=== PATIENT | male | born 1945 | race Caucasian/White ===

== ENCOUNTER → 2016-05-03 | Outpatient (CLI) | payer OTHER ==
[~2016-05-03] MED LIST: ASPI81TA28 PO; ATOR-22 PO; CHOLTAB3 PO; CINN500T PO; CLOTCRE33 TOP; GLIP-197 PO; LOSA1TAB PO; METF-384 PO; MULT-845 PO; NAPR1TAB9 PO; OMEP20CA59 PO; PRVHFAIN PO
[2016-05-03 12:49] LABS: BLOOD UREA NITROGEN 13 mg/dl (7-18); CREATININE 0.95 mg/dl (0.60-1.40); GLUCOSE 152 mg/dl (70-99)
[2016-05-03 12:50] LABS: ALT/SGPT 39 U/L (12-78); BUN/CREATININE RATIO 13.9 (10-20); CALCIUM 8.7 mg/dl (8.5-10.1); CARBON DIOXIDE 27 mmol/L (21-32); CHLORIDE 103 mmol/L (98-107); CHOLESTEROL 162 mg/dl (0-200); POTASSIUM 4.4 mmol/L (3.5-5.1); SODIUM 140 mmol/L (136-145); TRIGLYCERIDES 114 mg/dl (0-150); VERY LOW DENSITY LIPOPROT CALC 23 mg/dl
[2016-05-03 13:00] LABS: ALB/GLOB RATIO 1.1 (0.9-2); ALKALINE PHOSPHATASE 92 U/L (45-117); AST/SGOT 24 U/L (15-37); CHOLESTEROL/HDL RATIO 3.4; HDL CHOLESTEROL 47 mg/dl; LDL CHOLESTEROL CALCULATED 92 mg/dl; THYROID STIMULATING HORMONE 0.768 uIu/ml (0.300-4.500)
[2016-05-03 13:21] LABS: ESTIMATED AVERAGE GLUCOSE 157 mg/dl; HA1C FLAG Normal (Normal)
== END | disposition home or self-care (01) ==
LOC: C.LABBFT 07:56
PROVIDERS: ATTEND Internal Medicine
DX: E11.9 Type 2 diabetes mellitus without complications (principal)

== ENCOUNTER → 2016-10-22 | Outpatient (CLI) | payer OTHER ==
[2016-10-22 12:29] LABS: HEMATOCRIT 47.1 % (42-52); MEAN CELL VOLUME 94.8 fL (80-100); MEAN CORPUSCULAR HEMOGLOBIN 30.8 pg (25-34); MEAN CORPUSCULAR HGB CONC 32.5 g/dl (32-36); PLATELET COUNT 294 K/uL (130-400); RED BLOOD COUNT 4.97 M/uL (4.7-6.1); WHITE BLOOD COUNT 8.64 K/uL (4.8-10.8)
[2016-10-22 12:38] LABS: ALT/SGPT 38 U/L (12-78); AST/SGOT 20 U/L (15-37); BLOOD UREA NITROGEN 13 mg/dl (7-18); BUN/CREATININE RATIO 15.5 (10-20); CALCIUM 8.6 mg/dl (8.5-10.1); CARBON DIOXIDE 30 mmol/L (21-32); CHLORIDE 104 mmol/L (98-107); CHOLESTEROL 136 mg/dl (0-200); CREATININE 0.87 mg/dl (0.60-1.40); GLUCOSE 171 mg/dl (70-99); POTASSIUM 4.5 mmol/L (3.5-5.1); SODIUM 139 mmol/L (136-145)
[2016-10-22 12:45] LABS: ESTIMATED AVERAGE GLUCOSE 163 mg/dl; HA1C FLAG Normal (Normal)
[2016-10-22 12:49] LABS: ALKALINE PHOSPHATASE 144 U/L (45-117); CHOLESTEROL/HDL RATIO 3.7; FREE PSA 0.12 ng/ml; HDL CHOLESTEROL 37 mg/dl; LDL CHOLESTEROL CALCULATED 69 mg/dl; PROSTATE SPECIFIC ANTIGEN 0.526 ng/ml (0.000-4.000); THYROID STIMULATING HORMONE 0.651 uIu/ml (0.300-4.500); TRIGLYCERIDES 152 mg/dl (0-150); VERY LOW DENSITY LIPOPROT CALC 30 mg/dl
[2016-10-22 13:10] LABS: RATIO 15.8 mcg/mg (0-30.0)
== END | disposition home or self-care (01) ==
LOC: C.LABBFT 07:46
PROVIDERS: ATTEND Internal Medicine
DX: N40.0 Benign prostatic hyperplasia without lower urinary tract symptoms (principal); E11.9 Type 2 diabetes mellitus without complications

== ENCOUNTER → 2017-06-05 | Outpatient (CLI) | payer OTHER ==
[2017-06-05 12:17] LABS: HEMOGLOBIN A1C 7.6 % (4.5-5.6)
[2017-06-05 12:35] LABS: ALBUMIN 3.8 gm/dl (3.4-5.0); ALKALINE PHOSPHATASE 106 U/L (45-117); ALT/SGPT 42 U/L (12-78); AST/SGOT 23 U/L (15-37); BLOOD UREA NITROGEN 14 mg/dl (7-18); CALCIUM 8.5 mg/dl (8.5-10.1); CARBON DIOXIDE 31 mmol/L (21-32); CHOLESTEROL 155 mg/dl (0-200); GLUCOSE 172 mg/dl (70-99); POTASSIUM 4.3 mmol/L (3.5-5.1); SODIUM 138 mmol/L (136-145)
[2017-06-05 12:44] LABS: LDL CHOLESTEROL CALCULATED 93 mg/dl; TOTAL PROTEIN 7.2 gm/dl (6.4-8.2)
== END | disposition home or self-care (01) ==
LOC: C.LABBFT 07:34
PROVIDERS: ATTEND Internal Medicine
DX: E78.00 Pure hypercholesterolemia, unspecified (principal); E11.29 Type 2 diabetes mellitus with other diabetic kidney complication

== ENCOUNTER → 2017-10-29 | Outpatient (CLI) | payer OTHER ==
[2017-10-29 17:41] LABS: BASO % 0.3 %; BASO ABS # 0.03 K/uL (0-0.2); EOS % 1.3 %; EOS ABS # 0.13 K/uL (0-0.5); HEMOGLOBIN 14.6 g/dL (14.0-18.0); IG# 0.02 K/uL (0.00-0.02); LYMPH % 20.1 %; LYMPH ABS # 1.94 K/uL (1.2-3.4); MEAN CELL VOLUME 92.8 fL (80-100); MEAN CORPUSCULAR HEMOGLOBIN 30.8 pg (25-34); MEAN CORPUSCULAR HGB CONC 33.2 g/dl (32-36); MEAN PLATELET VOLUME 9.5 fL (7.4-10.4); MONO % 8.7 %; MONO ABS # 0.84 K/uL (0.11-0.59); NEUT % 69.4 %; NEUT ABS # 6.68 K/uL (1.4-6.5); PLATELET COUNT 358 K/uL (130-400); RED CELL DISTRIBUTION WIDTH CV 13.7 % (11.5-14.5); RED CELL DISTRIBUTION WIDTH SD 46.7 fL (36.4-46.3); WHITE BLOOD COUNT 9.64 K/uL (4.8-10.8)
[2017-10-29 18:07] LABS: ALBUMIN 3.2 gm/dl (3.4-5.0); ALKALINE PHOSPHATASE 129 U/L (45-117); ALT/SGPT 32 U/L (12-78); AST/SGOT 24 U/L (15-37); BLOOD UREA NITROGEN 14 mg/dl (7-18); CARBON DIOXIDE 26 mmol/L (21-32); CREATININE 0.96 mg/dl (0.60-1.40); GLUCOSE 149 mg/dl (70-99); POTASSIUM 3.7 mmol/L (3.5-5.1); SODIUM 135 mmol/L (136-145)
== END | disposition home or self-care (01) ==
LOC: C.LAB1850 16:00
PROVIDERS: ATTEND Nurse Practitioner Adult Health
DX: N52.9 Male erectile dysfunction, unspecified (principal); R61 Generalized hyperhidrosis; R53.83 Other fatigue; R10.9 Unspecified abdominal pain; R19.7 Diarrhea, unspecified

== ENCOUNTER → 2017-10-30 | Outpatient (CLI) | payer OTHER | END | disposition home or self-care (01) | LOC: C.LAB 13:42 | PROVIDERS: ATTEND Nurse Practitioner Adult Health | DX: R61 Generalized hyperhidrosis (principal) ==

== ENCOUNTER → 2017-11-03 | Outpatient (CLI) | payer OTHER ==
--- NOTE | 2017-11-03 08:46 | DIAGNOSTIC IMAGING REPORT ---
ABDOMEN COMPLETE (US) HISTORY: Pain. Nausea. R10.9 Abdominal [id number]. COMPARISON: 09/29/2014 FINDINGS: Pancreas: The pancreas demonstrates a normal echotexture. Liver: Fatty infiltration Gallbladder: Gallstones. Normal gallbladder wall. CBD: 6 mm Kidneys: No hydronephrosis. Spleen: Normal in size. Aorta: Normal in caliber. IVC: Patent. IMPRESSION: 1. Gallstones. 2. Fatty infiltration of liver. 3. Normal caliber bile ducts. The above report was generated using voice recognition software. It may contain grammatical, syntax or spelling errors. Electronically signed by: Oc Smart M.D. 11/03/2017 8:45 AM Dictated Date/Time: 11/03/2017 8:43 AM
== END | disposition home or self-care (01) ==
LOC: C.ULTR 07:30
PROVIDERS: ATTEND Nurse Practitioner Adult Health
DX: K80.20 Calculus of gallbladder without cholecystitis without obstruction (principal); K76.0 Fatty (change of) liver, not elsewhere classified

== ENCOUNTER → 2017-11-05 | Outpatient (CLI) | payer OTHER ==
[2017-11-05 11:08] LABS: BLOOD UREA NITROGEN 10 mg/dl (7-18); CARBON DIOXIDE 27 mmol/L (21-32); CREATININE 0.94 mg/dl (0.60-1.40); GLUCOSE 193 mg/dl (70-99); POTASSIUM 3.6 mmol/L (3.5-5.1); SODIUM 136 mmol/L (136-145)
== END | disposition home or self-care (01) ==
LOC: C.LAB1850 09:22
PROVIDERS: ATTEND Nurse Practitioner Adult Health
DX: R19.7 Diarrhea, unspecified (principal)

== ENCOUNTER 2021-10-28 21:51 | Inpatient (IN) ==
[2021-10-28] MEDS ORDERED: MoRPHine SULFATE 4 MG/ML 1 ML CARP\\VIAL IV PRN (22:21)
[2021-10-28] MEDS ORDERED: ONDANSETRON INJ 2 MG/ML 2 ML VIAL IV STA (22:21)
[2021-10-28] MEDS ORDERED: SODIUM CHLORIDE 0.9% 1000ML 1,000 ML IV STA (22:21)
--- NOTE | 2021-10-28 22:31 | Emergency Department Note ---
Impression & Plan Epigastric abdominal pain, Cholelithiasis, Acute pancreatitis, Vomiting ED Provider Note NAME: JULIEN HUBBARD AGE: 76 SEX: M : 1945 ARRIVES VIA: Walk-In INFORMANT: [Patient] ED PROVIDER(S): [Lamberto Ortez MD] CHIEF COMPLAINT: Abdominal pain HISTORY OF PRESENT ILLNESS: The patient is a 76-year-old male who presents with abdominal pain that began about 2 hours ago. The pain started about 1-1/2 hours after eating. The pain was epigastric and fairly severe. He did become nauseated and vomited. He had felt fine earlier in the day. There has been no cough or congestion. No shortness of breath. The patient has never had any abdominal surgeries. He has never had pain like this before. His pain is a bit better now than it was but he still has discomfort. REVIEW OF SYSTEMS: See HPI for pertinent positives and negatives. A total of ten systems were reviewed and were otherwise negative. PMHx/PSHx: See Below SOCIAL HISTORY: See Below. PHYSICAL EXAM: GENERAL: Patient is in mild distress from pain. HEENT: No acute trauma, normocephalic atraumatic, mucous membranes moist, no nasal congestion, no scleral icterus. NECK: No stridor, no adenopathy, no meningismus, trachea is midline. LUNGS: Clear to auscultation bilaterally, no wheeze, no rhonchi, breath sounds equal. HEART: Without murmurs gallops or rubs, regular rate and rhythm. ABDOMEN: Soft, moderately tender in the right upper quadrant and epigastrium, no peritonitis. EXTREMITIES: No cyanosis or edema, full range of motion of all the joints without pain or difficulty, no signs for acute trauma. NEUROLOGIC: Oriented x 3, no acute motor or sensory deficits, no focal weakness. SKIN: No rash, no jaundice, no diaphoresis. DIFFERENTIAL DIAGNOSIS: Appendicitis, testicular torsion, diverticulitis, UTI, obstruction, mesenteric ischemia, aortic pathology, inflammatory bowel disease, renal colic, PUD, pancreatitis, biliary pathology, hernia, volvulus, constipation, as well as other pathologies. EMERGENCY DEPARTMENT COURSE/PROCEDURES: ECG: Indication was abdominal pain. The ECG shows a sinus rhythm with some si nus arrhythmia. The rate is 75. There is a right bundle branch block. There is no ST elevation, no PVCs. The QTc is 486. Compared to an ECG from 21 October 2012, the rate has decreased. Continuous Cardiac Monitoring: An order was placed for continuous cardiac monitoring. The monitor shows a rate of 87 with normal sinus rhythm. MEDICAL DECISION MAKING: There is a mild leukocytosis, this could be consistent with infection or just his pain. There was a normal hemoglobin and platelet count. No renal failure or significant electrolyte abnormality. No concerning liver enzyme elevation. There were a few subtle liver enzyme elevations. The bilirubin was normal. ECG showed a sinus rhythm, no obvious ischemia. Cardiac enzyme testing x1 was not c onsistent with acute cardiac injury. Lipase was elevated consistent with pancreatitis. COVID test returned negative. Chest film showed some elevation of the left hemidiaphragm, no free air or pneumonia. Abdominal and pelvis CT shows gallstones, no bowel perforation or bowel obstruction. Gallbladder ultrasound shows gallstones without biliary ductal dilatation. On exam, the patient was tender in the epigastrium and right upper quadrant. Patient received IV saline. He was given IV Zofran and IV morphine. Received IV Toradol and IV Tylenol. Patient needs a hospital stay and further work-up. He appears to have gallstone pancreatitis. I did speak with the patient and his about our findings. I did speak with case management. The on-call hospitalist has been consulted. Past Med/Surg History Medical History Gastroesophageal reflux disease History of colon polyps History of Lyme disease HTN (hypertension) Hypercholesterolemia Osteoarthritis Steatohepatitis, nonalcoholic Type 2 diabetes mellitus NIDDM Surgical History History of Achilles tendon repair Right History of ankle surgery Left History of colonoscopy History of foot surgery Left History of surgery removal of hardware from left foot - reports hardware broke and metal still present in foot History of tonsillectomy History of wisdom tooth extraction Family History Father Coronary heart disease Myocardial infarction Mother Coronary heart disease Myocardial infarction Brother Coronary heart disease Myocardial infarction Son Type 1 diabetes mellitus Diabetic gastroparesis Unknown Diabetes Other No family history of adverse response to anesthesia Denies family history of Ovarian cancer Prostate cancer Breast cancer Colorectal cancer Social History Smoking Status: Never smoker Second Hand Exposure: Yes (as a child); Hx Alcohol Use: No Hx Substance Use: No Preferred Language: Estonian Communication Ability: Effective Visual Impairment: No Limitations Hearing Ability: Normal Second Cook And Baker Required: No Beliefs That Will Affect Care: None marital status: Current Living Situation: Spouse current occupational status: retired 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 Safe at Home: Yes Childhood Exposure to Second-Hand Smoke: Yes caffeine: Yes Dental Care, Regularly: Yes Physical Activity Frequency: Daily Seatbelt Use: always Sunscreen Use: Yes Assistive Devices: Glasses Allergies Allergies Allergy/AdvReac Type Severity Reaction Status Date / Time amoxicillin Allergy Intermediate Rash Verified 10/28/21 22:37 aspartame AdvReac Intermediate HEADACHES Verified 10/28/21 22:37 lisinopril AdvReac Intermediate NAUSEA Verified 10/28/21 22:37 Home Meds Home Medications Medication Instructions Recorded Confirmed cholecalciferol (vitamin D3) 10 400 units PO QPM 10/09/18 10/28/21 mcg (400 unit) capsule cinnamon bark 500 mg capsule 1,000 mg PO QPM 10/27/18 10/28/21 (Cinnamon) multivit,Ca,min-iron 8 mg-folic 1 tab PO QAM 10/27/18 10/28/21 acid 200 mcg-lycopene 600 mcg tablet (Centrum Ultra Men's) naproxen sodium 220 mg tablet 220 mg PO BID PRN pain 10/27/18 10/28/21 fexofenadine 180 mg tablet 180 mg PO QPM 11/22/19 10/28/21 glipizide 5 mg tablet, extended 10 mg PO BID 07/04/21 10/28/21 release 24 hr aspirin 81 mg tablet,delayed 81 mg PO DAILY 10/28/21 10/28/21 release tacrolimus 0.1 % topical ointment 1 applic topical BID PRN Skin 10/28/21 10/28/21 Irritation Previous Rx's Medication Instructions Recorded atorvastatin 80 mg tablet 80 mg PO HS #90 tabs 01/03/21 metformin 500 mg tablet 1,000 mg PO BID #360 tabs 02/05/21 omeprazole 40 mg capsule,delayed 40 mg PO QAM #90 caps 02/05/21 release blood sugar diagnostic #50 ea 09/05/21 losartan 25 mg tablet 25 mg PO QAM #90 tabs 09/18/21 Results & Data (ED) Vital Signs Vital Signs - 24 hr 10/28/21 21:54 10/28/21 22:33 10/28/21 22:21 Temperature 36.7 C Temperature Source Temporal Artery Scan Pulse Rate 87 Pulse Rate from SpO2 Sensor Respiratory Rate 20 Respiratory Effort / Characteristics Non-Labored Spontaneous Non-Labored Respiratory Depth Normal Normal Respiratory Pattern Regular Blood Pressure 128/76 Blood Pressure Mean 93 Blood Pressure Position Sitting Pulse Oximetry 100 98 Oxygen Delivery Method Room Air Room Air Sepsis Recent Fever Within 48 Hours No Sepsis New/Unexplained Change in Mental Status No Sepsis Action Taken by Nursing No Action Required 10/28/21 22:03 10/28/21 22:10 10/28/21 22:20 Temperature Temperature Source Pulse Rate 97 H 95 H 92 H Pulse Rate from SpO2 Sensor 93 H Respiratory Rate 21 21 22 Respiratory Effort / Characteristics Respiratory Depth Respiratory Pattern Blood Pressure Blood Pressure Mean Blood Pressure Position Pulse Oximetry 97 Oxygen Delivery Method Sepsis Recent Fever Within 48 Hours Sepsis New/Unexplained Change in Mental Status Sepsis Action Taken by Nursing 10/28/21 22:30 10/28/21 22:40 10/28/21 22:50 Temperature Temperature Source Pulse Rate 93 H 98 H 95 H Pulse Rate from SpO2 Sensor 91 H 97 H 90 Respiratory Rate 21 19 8 L Respiratory Effort / Characteristics Respiratory Depth Respiratory Pattern Blood Pressure Blood Pressure Mean Blood Pressure Position Pulse Oximetry 96 96 91 Oxygen Delivery Method Sepsis Recent Fever Within 48 Hours Sepsis New/Unexplained Change in Mental Status Sepsis Action Taken by Nursing 10/28/21 23:00 10/28/21 23:10 10/29/21 00:13 Temperature Temperature Source Pulse Rate 94 H 94 H Pulse Rate from SpO2 Sensor 90 92 H 99 H Respiratory Rate 13 10 L Respiratory Effort / Characteristics Respiratory Depth Respiratory Pattern Blood Pressure Blood Pressure Mean Blood Pressure Position Pulse Oximetry 97 98 98 Oxygen Delivery Method Sepsis Recent Fever Within 48 Hours Sepsis New/Unexplained Change in Mental Status Sepsis Action Taken by Nursing 10/29/21 00:20 10/29/21 00:30 10/29/21 00:46 Temperature Temperature Source Pulse Rate Pulse Rate from SpO2 Sensor 104 H 106 H Respiratory Rate Respiratory Effort / Characteristics Non-Labored Respiratory Depth Normal Respiratory Pattern Blood Pressure Blood Pressure Mean Blood Pressure Position Pulse Oximetry 96 99 Oxygen Delivery Method Sepsis Recent Fever Within 48 Hours Sepsis New/Unexplained Change in Mental Status Sepsis Action Taken by Nursing 10/29/21 01:54 Temperature Temperature Source Pulse Rate Pulse Rate from SpO2 Sensor Respiratory Rate Respiratory Effort / Characteristics Respiratory Depth Respiratory Pattern Blood Pressure Blood Pressure Mean Blood Pressure Position Pulse Oximetry Oxygen Delivery Method Room Air Sepsis Recent Fever Within 48 Hours Sepsis New/Unexplained Change in Mental Status Sepsis Action Taken by Long-Term Medications Current Medication List: was personally reviewed by me Laboratory Data Attestation: I reviewed the patient's lab results. Result diagrams: 10/28/21 22:11 10/28/21 22:11 Lab Results 10/28/21 10/28/21 10/28/21 Range/Units 22:11 22:11 22:50 WBC 12.89 H (4.8-10.8) K/ul RBC 4.91 (4.63-6.08) M/uL Hgb 14.7 (14.0-18.0) g/dl Hct 44.3 (40.1-51.0) % MCV 90.2 (80.0-100.0) fL MCH 29.9 (25.0-34.0) pg MCHC 33.2 (32.0-36.0) g/dL RDW Std Deviation 41.1 (36.4-46.3) fL RDW Coeff of Jay 12.4 (11.5-14.5) % Plt Count 294 (130-400) K/uL MPV 9.8 (9.4-12.4) fL Immature Gran % (Auto) 0.4 % Neut % (Auto) 51.3 % Lymph % (Auto) 37.4 % Mcdowell % (Auto) 7.2 % Eos % (Auto) 3.1 % Baso % (Auto) 0.6 % Neut # (Auto) 6.61 H (1.4-6.5) K/uL Lymph # (Auto) 4.82 H (1.2-3.4) K/uL Mcdowell # (Auto) 0.93 H (0.24-0.82) K/uL Eos # (Auto) 0.40 (0-0.50) K/uL Baso # (Auto) 0.08 (0-0.2) K/uL Immature Gran # (Auto) 0.05 H (0.00-0.02) K/uL Sodium 138 (136-145) mmol/L Potassium 3.8 (3.5-5.1) mmol/L Chloride 99 (98-107) mmol/L Carbon Dioxide 26 (21-32) mmol/L Anion Gap 13 H (3-11) BUN 17 (6-23) mg/dl Creatinine 0.87 (0.6-1.4) mg/dl Est Cr Clr Drug Dosing 76.9 ml/min Est GFR ( Amer) 98.5 ml/min Est GFR (Non-Af Amer) 85.0 ml/min BUN/Creatinine Ratio 19.5 (10-20) Glucose 192 H (70-99(Fasting)) mg/dl Calcium 8.5 (8.5-10.1) mg/dl Total Bilirubin 0.8 (0.2-1.0) mg/dl AST 40 H (13-39) U/L ALT 42 (7-52) U/L Alkaline Phosphatase 108 H (34-104) U/L Troponin I High Sens 7.9 (0-20) pg/ml Total Protein 7.1 (6.0-8.3) gm/dl Albumin 4.0 (3.4-5.0) gm/dl Globulin 3.1 (2.5-4.0) gm/dl Albumin/Globulin Ratio 1.3 (0.9-2) Lipase 5212 H (11-82) U/L SARS-CoV-2, RNA, NAAT NEGATIVE (NEGATIVE) Administered Medications Discontinued Medications Acetaminophen (Acetaminophen 1000 Mg/100 Ml Iv) 1,000 mg IV NOW STA Stop: 10/28/21 23:59 Last Admin: 10/29/21 00:11 Dose: 1,000 mg Documented By: BRANDO Sodium Chloride (Nss 1000ml) 1,000 mls @ 999 mls/hr IV .Q1H1M STA Stop: 10/28/21 23:21 Last Infusion: 10/29/21 00:53 Dose: 0 mls/hr Documented By: Admin: 10/28/21 22:40 Dose: 999 mls/hr Documented By: BRANDO Ioversol (Optiray 320 100ml) 93 ml IV ONCE ONE Stop: 10/28/21 23:17 Last Admin: 10/28/21 23:19 Dose: 93 ml Documented By: CYN Ketorolac Tromethamine (Ketorolac Tromethamine 15 Mg/Ml Vial) 15 mg IV NOW STA Stop: 10/28/21 23:59 Last Admin: 10/29/21 00:07 Dose: 15 mg Documented By: BRANDO Morphine Sulfate (Morphine Sulfate 4 Mg/Ml 1 Ml Carp\Vial) 4 mg IV Q15M PRN PRN Reason: Pain Stop: 11/11/21 22:20 Last Admin: 10/28/21 22:39 Dose: 4 mg Documented By: BRANDO Ondansetron HCl (Ondansetron Inj 2 Mg/Ml 2 Ml Vial) 4 mg IV NOW STA Stop: 10/28/21 22:22 Last Admin: 10/28/21 22:39 Dose: 4 mg Documented By: BRANDO Imaging Data Attestation: I personally reviewed and interpreted this imaging study as follows: My Impression: Chest x-ray: Per my review there is an elevation to the left hemidiaphragm. No pneumonia or free air. Radiologist's Impression: Abdominal and pelvis CT with contrast: Cholelithiasis noted with layering gravel like stones present with a moderately distended but not thick-walled g allbladder. Ultrasound recommended. No biliary ductal dilatation Ultrasound right upper quadrant: The pancreas appears normal. There is material within the gallbladder compatible with cholelithiasis. Gallbladder wall is not thickened. The common bile duct caliber is normal. The right kidney is normal. Discharge Plan Visit Data Chief Complaint: Abdominal Pain Stated Complaint: ABDOMINAL PAIN, VOMITING, SWEATING ED Provider: Lamberto Ortez Patient Disposition: Admitted As Inpatient Condition: Fair Prescriptions Prescriptions: No Action atorvastatin 80 mg tablet 80 mg PO HS Qty: 90 3RF omeprazole 40 mg capsule,delayed release(DR/EC) 40 mg PO QAM Qty: 90 3RF metformin 500 mg tablet 1,000 mg PO BID Qty: 360 3RF (DME) OneTouch Ultra Blue Test Strip Strip See Dose Instructions .ROUTE .MEDSUPPLY Qty: 50 11RF Rx Instructions: Use to test blood sugar once daily losartan 25 mg tablet 25 mg PO QAM Qty: 90 3RF cholecalciferol (vitamin D3) 400 unit capsule 400 units PO QPM cinnamon bark [Cinnamon] 500 mg capsule 1,000 mg PO QPM Centrum Ultra Men's 8 mg iron- 200 mcg-600 mcg tablet 1 tab PO QAM naproxen sodium 220 mg tablet 220 mg PO BID PRN (Reason: pain) glipizide 5 mg tablet extended release 24 hr 10 mg PO BID Rx Instructions: as directed with meals fexofenadine 180 mg Tablet 180 mg PO QPM aspirin 81 mg Tablet,Delayed Release (Dr/Ec) 81 mg PO DAILY tacrolimus 0.1 % ointment 1 applic topical BID PRN (Reason: Skin Irritation) Rx Instructions: Apply to areas of the hand twice daily as needed.
[2021-10-28 22:34] LABS: Basophils # (auto) 0.08 K/uL (0-0.2); Basophils % (auto) 0.6 %; Eosinophils % (auto) 3.1 %; Hematocrit (blood only) 44.3 % (40.1-51.0); Hemoglobin 14.7 g/dl (14.0-18.0); Immature Granulocytes # (auto) 0.05 K/uL (0.00-0.02); Immature Granulocytes % (auto) 0.4 %; Lymphocytes # (auto) 4.82 K/uL (1.2-3.4); Lymphocytes % (auto) 37.4 %; Mean Corpuscular Hemoglobin 29.9 pg (25.0-34.0); Mean Corpuscular Hgb Conc 33.2 g/dL (32.0-36.0); Mean Corpuscular Volume 90.2 fL (80.0-100.0); Mean Platelet Volume 9.8 fL (9.4-12.4); Monocytes # (auto) 0.93 K/uL (0.24-0.82); Monocytes % (auto) 7.2 %; Neutrophils # (auto) 6.61 K/uL (1.4-6.5); Neutrophils % (auto) 51.3 %; Platelet Count 294 K/uL (130-400); RDW Coefficient of Variation 12.4 % (11.5-14.5); RDW Standard Deviation 41.1 fL (36.4-46.3); Red Blood Count 4.91 M/uL (4.63-6.08); White Blood Count 12.89 K/ul (4.8-10.8)
[2021-10-28 22:58] LABS: Troponin I High Sensitivity 7.9 pg/ml (0-20)
[2021-10-28 23:03] LABS: BUN Creatinine Ratio 19.5 (10-20); Calcium 8.5 mg/dl (8.5-10.1); Creatinine Clr Calc Pharmacy 76.9 ml/min; Est GFR (African American) 98.5 ml/min; Potassium 3.8 mmol/L (3.5-5.1)
[2021-10-28] MEDS ORDERED: OPTIRAY 320 100ml IV ONE (23:16)
[2021-10-28 23:55] LABS: Albumin Globulin Ratio 1.3 (0.9-2); Bilirubin,Total 0.8 mg/dl (0.2-1.0); Globulin 3.1 gm/dl (2.5-4.0); Total Protein 7.1 gm/dl (6.0-8.3)
[2021-10-28] MEDS ORDERED: ACETAMINOPHEN 1000 MG/100 ML IV IV STA (23:58)
[2021-10-28] MEDS ORDERED: KETOROLAC TROMETHAMINE 15 MG/ML VIAL IV STA (23:58)
--- NOTE | 2021-10-29 00:23 | History & Physical Report ---
Date of Service October 29, 2021 Assessment & Plan (1) Acute gallstone pancreatitis: Plan: 76yo male with a history of T2DM, cholelithiasis, HLD, BPH, arthritis, steatohepatitis, and GERD presents with a few-hour history of abdominal pain, nausea, and vomiting. Abdominal pain suspected secondary to gallstone pancreatitis Patient with a few-hour history of abdominal pain that began after eating Vitals stable; labs notable for mild leukocytosis, lipase elevated to 5212, minimal elevations in AST/alkphos CT abdomen/pelvis: cholelithiasis noted with layering gravel-like stones present within a moderately distended but not thick-walled gallbladder US gallbladder performed; read pending MRCP performed, read pending GI consulted for consideration of ERCP / further workup Pain control, antiemetics NSS @ 80mL/hr (x1 bag ordered) Trend daily CBC, CMP DM2 HbA1c 8.3% (06/2021) Patient's home regimen held on admission Continue BSG checks, sliding-scale insulin, hypoglycemic protocol HLD: hold home atorvastatin while NPO HTN: BP well-controlled on admission, holding home regimen while NPO GERD: holding home regimen while NPO FEN: NPO, NSS @ 80mL/hr (x1 bag ordered) Code status: DNI DVT ppx: SCDs Consults: gastroenterology Dispo: med/surg (2) Arthritis: (3) Cholelithiasis: (4) Diabetes mellitus type 2, uncontrolled: (5) Gastroesophageal reflux disease: (6) Hypercholesterolemia: (7) Steatohepatitis, nonalcoholic: History of Present Illness Primary Care Provider: JUDD Jacobs 76yo male with a history of T2DM, cholelithiasis, HLD, BPH, arthritis, steatohepatitis, and GERD presents with a few-hour history of abdominal pain, nausea, and vomiting. Symptoms began shortly after patient started breakfast. Patient notes his pain is primarily RUQ pain which is constant and dull. Has never had pain like this before. Became nauseous shortly after the pain began; had one episode of vomiting which was nonbloody and nonbilious. Has a history of gallstones but has never had any abdominal surgeries before. Patient denies fever, chills, headache, vision changes, CP, palpitations, SOB, edema, dysuria, hematochezia, melena, lightheadedness, dizziness, numbness, tingling, weakness, or other symptoms. Denies recent illness and recent travel. Upon arrival, vitals were stable; BP not elevated or low, no tachycardia, no tachypnea, afebrile, spO2 adequate on room air. Initial labs were notable for mild leukocytosis (12.9), minimally elevated AST (40), minimally elevated alk phos (108), and significantly elevated lipase (5212). In the ED, patient received NSS 1L bolus (x1), morphine IV 8mg in total, and toradol IV 15mg (x1). Surrogate decision-maker in case of an emergency: Madison Nuñez (cell: [phone]) Allergies Allergy/AdvReac Type Severity Reaction Status Date / Time amoxicillin Allergy Intermediate Rash Verified 10/28/21 22:37 aspartame AdvReac Intermediate HEADACHES Verified 10/28/21 22:37 lisinopril AdvReac Intermediate NAUSEA Verified 10/28/21 22:37 Home Medications Medication Instructions Recorded Confirmed Type cholecalciferol (vitamin D3) 10 400 units PO QPM 10/09/18 10/28/21 History mcg (400 unit) capsule cinnamon bark 500 mg capsule 1,000 mg PO QPM 10/27/18 10/28/21 History (Cinnamon) multivit,Ca,min-iron 8 mg-folic 1 tab PO QAM 10/27/18 10/28/21 History acid 200 mcg-lycopene 600 mcg tablet (Centrum Ultra Men's) naproxen sodium 220 mg tablet 220 mg PO BID PRN pain 10/27/18 10/28/21 History fexofenadine 180 mg tablet 180 mg PO QPM 11/22/19 10/28/21 History atorvastatin 80 mg tablet 80 mg PO HS #90 tabs 01/03/21 10/28/21 Rx metformin 500 mg tablet 1,000 mg PO BID #360 tabs 02/05/21 10/28/21 Rx omeprazole 40 mg capsule,delayed 40 mg PO QAM #90 caps 02/05/21 10/28/21 Rx release glipizide 5 mg tablet, extended 10 mg PO BID 07/04/21 10/28/21 History release 24 hr blood sugar diagnostic #50 ea 09/05/21 09/27/21 Rx losartan 25 mg tablet 25 mg PO QAM #90 tabs 09/18/21 10/28/21 Rx aspirin 81 mg tablet,delayed 81 mg PO DAILY 10/28/21 10/28/21 History release tacrolimus 0.1 % topical ointment 1 applic topical BID PRN Skin 10/28/21 10/28/21 History Irritation Past Med/Surg History Medical History Gastroesophageal reflux disease History of colon polyps History of Lyme disease HTN (hypertension) Hypercholesterolemia Osteoarthritis Steatohepatitis, nonalcoholic Type 2 diabetes mellitus NIDDM Surgical History History of Achilles tendon repair Right History of ankle surgery Left History of colonoscopy History of foot surgery Left History of surgery removal of hardware from left foot - reports hardware broke and metal still present in foot History of tonsillectomy History of wisdom tooth extraction Family History Father Coronary heart disease Myocardial infarction Mother Coronary heart disease Myocardial infarction Brother Coronary heart disease Myocardial infarction Son Type 1 diabetes mellitus Diabetic gastroparesis Unknown Diabetes Other No family history of adverse response to anesthesia Denies family history of Ovarian cancer Prostate cancer Breast cancer Colorectal cancer Social History Smoking Status: Never smoker Second Hand Exposure: Yes (as a child); Hx Alcohol Use: No Hx Substance Use: No Preferred Language: Khmer Communication Ability: Effective Visual Impairment: No Limitations Hearing Ability: Normal Java Oracle Developer Required: No Beliefs That Will Affect Care: None marital status: Current Living Situation: Spouse current occupational status: retired 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 Other Information That Helps Us Care for You: No Feels Safe at Home: Yes Safety Concerns: Feels Safe At This Time Childhood Exposure to Second-Hand Smoke: Yes caffeine: Yes Dental Care, Regularly: Yes Physical Activity Frequency: Daily Seatbelt Use: always Sunscreen Use: Yes Assistive Devices: Glasses Physical Exam Physical Exam: Constitutional: well-appearing, no acute distress HEENT: NCAT, no scleral icterus CV: regular rhythm, no murmur appreciated, extremities well-perfused, no LE edema Resp: CTABL, no wheezes/rales/rhonchi appreciated, no increased work of breathing GI: soft, nondistended, moderate RUQ tenderness, nontender elsewhere, BS normoactive MSK: no gross deformities appreciated Skin: warm, dry, no rash appreciated Neuro: alert, oriented, no focal neurologic deficit appreciated Results & Data Results & Data ([facility]) Vital Signs (Past 12 Hours) Vital Signs Temp Pulse Resp BP Pulse Ox O2 Del Method 10/28/21 22:21 98 Room Air 10/28/21 21:54 36.7 C 87 20 128/76 100 Room Air Supervising Physician Co-Signing Physician Notes Attending addendum: I have physically seen this patient, have supervised the medical residents activities, and agree with the H&P unless as otherwise noted. Assessment and Plan: Acute gallstone pancreatitis- AST 40, lipase 5212 CT abdomen pelvis with cholelithiasis and distended gallbladder wall NPO Order MRCP Consult gastroenterology Zosyn 4.5 g IV every 8 hours NSS 80 mils per hour Zofran 4 mg IV every 6 hours as needed Famotidine 20 mg IV every 12 hours Diabetes mellitus- Hold glipizide, metformin Placed on Accu-Cheks before meals and at bedtime/every 6 hours with NovoLog coverage per scale Remaining orders and notations as noted Resident Activity Tracking Resident Involvement: Resident Care Provided and Embossing Machine Operator Coverage Note Care Provided: Adult Hospital Medicine
[2021-10-29] MEDS ORDERED: KETOROLAC TROMETHAMINE 15 MG/ML VIAL IV PRN (00:33)
[2021-10-29] MEDS ORDERED: DEXTROSE 50% 50 ML SYRINGE IV PRN (00:38)
[2021-10-29] MEDS ORDERED: GLUCOSE 10 TAB/TUBE PO PRN (00:38)
[2021-10-29] MEDS ORDERED: GLUCAGON FOR INJ 1 MG VIAL SQ PRN (00:38)
[2021-10-29] MEDS ORDERED: GLUCOSE 40% GEL 15 GM TUBE PO PRN (00:38)
[2021-10-29] MEDS ORDERED: CARBOHYDRATES FOR HYPOGLYCEMIA PO PRN (00:38)
[2021-10-29] MEDS ORDERED: SODIUM CHLORIDE 0.9% 1000ML 1,000 ML IV SCH (00:45)
[2021-10-29] MEDS: INSULIN ASPART PER UNIT SC SCH ×5 (02:20→21:49)
--- NOTE | 2021-10-29 05:47 | Billing Data ---
Date of Service October 29, 2021 Coding Level of Care Code 31293 Initial Inpt Care Lvl 3
[2021-10-29 07:00] LABS: Appearance Urine Clear (Clear); Bilirubin Urine Negative (Negative); Blood Urine Negative (Negative); Color Urine Yellow; Glucose Urine UA Negative (Negative); Ketones Urine Negative (Negative); Leukocyte Esterase Urine Negative (Negative); Nitrite Urine Negative (Negative); Protein Urine Negative (Negative); Specific Gravity Urine > 1.045 (1.000-1.030); Urobilinogen Urine Negative (Negative)
--- NOTE | 2021-10-29 07:05 | Ultrasound Report ---
US gallbladder HISTORY: 76 years-old Male stones, pain . Upper quadrant abdominal pain COMPARISON: CT abdomen and pelvis of same day TECHNIQUE: Multiple real-time sonographic images of the abdominal right upper quadrant were obtained assessing grayscale appearance and color flow FINDINGS: Limited visualization of the pancreas secondary to obscuring bowel gas. The common bile duct measures 7 mm transversely. There is increased echogenicity of the liver with poor through transmission. No h epatic mass identified. Distended gallbladder with cholelithiasis. The gallbladder wall appears sligh tly edematous however measures 2 mm. No definite pericholecystic fluid. The sonographic Villatoro sign w as unable to be assessed secondary to patient recently receiving pain medication. The imaged right ki dney is unremarkable without hydronephrosis. IMPRESSION: 1. Gallbladder distention with cholelithiasis. The gallbladder wall is not thickened however does ashley ear to be slightly edematous. Findings are equivocal for acute cholecystitis. Consider correlation [facility] hepatobiliary scan. 2. The common bile duct measures within the upper limits of normal secondary to the choledocholithias is seen on the comparison MRCP and CT abdomen and pelvis exams. 3. Hepatic steatosis. ACT 112: Negative or not required by law. The above report was generated using voice recognition software. It may contain grammatical, syntax o r spelling errors. Electronically signed by: Ross Gómez M.D. 10/29/2021 7:03 AM
[2021-10-29 08:02] LABS: Basophils # (auto) 0.04 K/uL (0-0.2); Basophils % (auto) 0.4 %; Eosinophils # (auto) 0.13 K/uL (0-0.50); Eosinophils % (auto) 1.2 %; Hemoglobin 13.5 g/dl (14.0-18.0); Immature Granulocytes # (auto) 0.02 K/uL (0.00-0.02); Immature Granulocytes % (auto) 0.2 %; Lymphocytes # (auto) 1.57 K/uL (1.2-3.4); Lymphocytes % (auto) 14.6 %; Mean Corpuscular Hemoglobin 29.8 pg (25.0-34.0); Mean Corpuscular Hgb Conc 32.9 g/dL (32.0-36.0); Mean Corpuscular Volume 90.5 fL (80.0-100.0); Mean Platelet Volume 9.9 fL (9.4-12.4); Monocytes # (auto) 0.85 K/uL (0.24-0.82); Monocytes % (auto) 7.9 %; Neutrophils # (auto) 8.13 K/uL (1.4-6.5); Neutrophils % (auto) 75.7 %; Platelet Count 247 K/uL (130-400); RDW Coefficient of Variation 12.6 % (11.5-14.5); RDW Standard Deviation 41.8 fL (36.4-46.3); Red Blood Count 4.53 M/uL (4.63-6.08); White Blood Count 10.74 K/ul (4.8-10.8)
--- NOTE | 2021-10-29 08:10 | CT Scan Report ---
ABDOMEN AND PELVIS CT WITH IV CONTRAST CT DOSE: 903.44 mGy.cm HISTORY: Acute upper abdominal pain with nausea epig abd pain TECHNIQUE: Multiaxial CT images of the abdomen and pelvis were performed following the IV administrat ion of 93 cc of Optiray, A dose lowering technique was utilized adhering to the principles of ALARA. COMPARISON STUDY: Gallbladder ultrasound and MRCP studies of same day FINDINGS: Mild cardiomegaly with mitral annular and coronary arterial calcifications. Mild left hemid iaphragmatic elevation. Subpleural groundglass densities with reticulation suggestive of fibrosis. No pneumatosis or pneumoperitoneum. The spleen measures within the upper limits of normal in size. Unre markable adrenal glands. Distended gallbladder with cholelithiasis and equivocal wall thickening. The re is mild intrahepatic and extrahepatic biliary ductal prominence with the common bile duct measurin g 9 mm. Hyperdense filling defects are noted within the distal common bile duct on image 160 compatib le with choledocholithiasis. There is equivocal stranding adjacent to the uncinate process of the douglas creas. No pancreatic ductal dilation. The liver is otherwise unremarkable. Nonspecific bilateral perinephric stranding. No hydronephrosis. Prostamegaly. Urinary bladder wall th ickening with partial distention. Small fat filled left inguinal hernia. Atherosclerosis of the aorta without aneurysm. There is no lymphadenopathy. There is no bowel obstruction or bowel wall thickening. Mild colonic diverticulosis. Normal appendix. No ascites or mesenteric inflammation. Degenerative changes of the spine, pelvis and hips. IMPRESSION: 1. Gallbladder distention with cholelithiasis and equivocal wall thickening, suspicious for acute cho lecystitis. 2. Choledocholithiasis with mild biliary ductal dilation. 3. Equivocal inflammatory stranding adjacent to the uncinate process of the pancreas. Correlate with lipase level to exclude acute pancreatitis. 4. No bowel obstruction or bowel wall thickening. Normal appendix. 5. Colonic diverticulosis. ACT 112: Negative or not required by law. The above report was generated using voice recognition software. It may contain grammatical, syntax o r spelling errors. Electronically signed by: Ross Gómez M.D. 10/29/2021 8:09 AM
[2021-10-29 08:20] LABS: Albumin Globulin Ratio 1.3 (0.9-2); Albumin Level 3.5 gm/dl (3.4-5.0); BUN Creatinine Ratio 24.7 (10-20); Bilirubin,Total 0.8 mg/dl (0.2-1.0); Calcium 7.7 mg/dl (8.5-10.1); Creatinine Clr Calc Pharmacy 104.3 ml/min; Est GFR (African American) 105.9 ml/min; Est GFR (Non-African American) 91.4 ml/min; Globulin 2.6 gm/dl (2.5-4.0); Total Protein 6.1 gm/dl (6.0-8.3)
[2021-10-29 08:38] LABS: Estimated Average Glucose 197 mg/dl; Hemoglobin A1C 8.5 % (4.5-5.6)
[2021-10-29] MEDS ORDERED: INDOMETHACIN 50 MG SUPP PR ONE (10:16)
--- NOTE | 2021-10-29 10:24 | Gastrointestinal Consultation ---
Date of Consultation October 29, 2021 Assessment & Plan (1) Acute gallstone pancreatitis: Patient is a 76 years old male admitted for suspected gallstone pancreatitis, cholecystitis. Noted to have choledocholithiasis and CBD dilatation on abdominal imaging studies. - Keep NPO - LR IV @ 125ml/hr - IV antibiotics - Plan for ERCP in OR by Dr. Shakira Crockett today - Consult surgery to eval for cholecystectomy - Symptomatic management otherwise Supervising Physician Co-Signing Physician Notes The patient presents with abdominal pain and mild elevation of his liver associated enzymes and has a CT which shows evidence of choledocholithiasis. Given this ERCP has been requested as part of evaluation prior to consideration of cholecystectomy. Patient notes that his pain is somewhat improved as compared to admission but is still persisting and has been requiring pain medications every few hours. Physical examination Right Upper quadrant tender to palpation Impression: Presents with signs and symptoms related to choledocholithiasis. ERCP has been requested by general surgery and my partner Dr. Singh for biliary compression. I discussed the risks and benefits to include bleeding, infection, perforation, pain, pancreatitis, failed biliary cannulation and need for follow-up studies. History of Present Illness Reason for Consultation: Gallstone pancreatitis Requesting Physician: Dr. Madhu Huff Attending Physician: Dr. Shakira Crockett History of Present Illness Pt is a 76yo male with a history of T2DM, cholelithiasis, HLD, BPH, arthritis, steatohepatitis, and GERD presents with a few-hour history of RUQ abdominal pain, nausea, and vomiting, shortly after he started breakfast. He denies associated fever, chills, chest pain, shortness of breath. Work-up significant for mild leukocytosis, mildly elevated AST at 40, elevated alkaline phosphatase is 108. Lipase was elevated over 5000. This morning LFTs are normal. Abdominal imaging studies including CT with contrast and gallbladder ultrasound showed gallbladder distention with Caro lithiasis, possible cholecystitis, there is also CBD dilatation with choledocholithiasis noted. Pancreas inflammation. No bowel obstruction. MRCP this morning, results pending. Denies tobacco, ETOh abuses, nor new meds/herbal supplements Allergies Allergy/AdvReac Type Severity Reaction Status Date / Time amoxicillin Allergy Intermediate Rash Verified 10/28/21 22:37 aspartame AdvReac Intermediate HEADACHES Verified 10/28/21 22:37 lisinopril AdvReac Intermediate NAUSEA Verified 10/28/21 22:37 Home Medications Medication Instructions Recorded Confirmed Type cholecalciferol (vitamin D3) 10 400 units PO QPM 10/09/18 10/28/21 History mcg (400 unit) capsule cinnamon bark 500 mg capsule 1,000 mg PO QPM 10/27/18 10/28/21 History (Cinnamon) multivit,Ca,min-iron 8 mg-folic 1 tab PO QAM 10/27/18 10/28/21 History acid 200 mcg-lycopene 600 mcg tablet (Centrum Ultra Men's) naproxen sodium 220 mg tablet 220 mg PO BID PRN pain 10/27/18 10/28/21 History fexofenadine 180 mg tablet 180 mg PO QPM 11/22/19 10/28/21 History atorvastatin 80 mg tablet 80 mg PO HS #90 tabs 01/03/21 10/28/21 Rx metformin 500 mg tablet 1,000 mg PO BID #360 tabs 02/05/21 10/28/21 Rx omeprazole 40 mg capsule,delayed 40 mg PO QAM #90 caps 02/05/21 10/28/21 Rx release glipizide 5 mg tablet, extended 10 mg PO BID 07/04/21 10/28/21 History release 24 hr blood sugar diagnostic #50 ea 09/05/21 09/27/21 Rx losartan 25 mg tablet 25 mg PO QAM #90 tabs 09/18/21 10/28/21 Rx aspirin 81 mg tablet,delayed 81 mg PO DAILY 10/28/21 10/28/21 History release tacrolimus 0.1 % topical ointment 1 applic topical BID PRN Skin 10/28/21 10/28/21 History Irritation Patient History Medical History Gastroesophageal reflux disease History of colon polyps History of Lyme disease HTN (hypertension) Hypercholesterolemia Osteoarthritis Steatohepatitis, nonalcoholic Type 2 diabetes mellitus NIDDM Surgical History History of Achilles tendon repair Right History of ankle surgery Left History of colonoscopy History of foot surgery Left History of surgery removal of hardware from left foot - reports hardware broke and metal still present in foot History of tonsillectomy History of wisdom tooth extraction Family History Father Coronary heart disease Myocardial infarction Mother Coronary heart disease Myocardial infarction Brother Coronary heart disease Myocardial infarction Son Type 1 diabetes mellitus Diabetic gastroparesis Unknown Diabetes Other No family history of adverse response to anesthesia Denies family history of Ovarian cancer Prostate cancer Breast cancer Colorectal cancer Social History Smoking Status: Never smoker Second Hand Exposure: Yes (as a child); Hx Alcohol Use: No Hx Substance Use: No Preferred Language: Swedish Communication Ability: Effective Visual Impairment: No Limitations Hearing Ability: Normal Sharepoint Manager Required: No Beliefs That Will Affect Care: None marital status: Current Living Situation: Spouse current occupational status: retired 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 Age Other Information That Helps Us Care for You: No Feels Safe at Home: No Is there a partner from a previous relationship who is making you feel unsafe now?: No Any Concerns about Your Family Situation: No Would You Like to Speak to Someone About Your Situation: No Safety Concerns: Feels Safe At This Time Childhood Exposure to Second-Hand Smoke: Yes caffeine: Yes Dental Care, Regularly: Yes Physical Activity Frequency: Daily Seatbelt Use: always Sunscreen Use: Yes Assistive Devices: None Review of Systems Review of Systems: All systems reviewed & are unremarkable except as noted in HPI & below Physical Exam Constitutional: WD/WN, vitals as above well groomed, cooperative and comfortable Eyes: PERRL, conjunctivae normal, anicteric sclerae ENMT: external ear and nose normal, oropharynx normal Respiratory: normal respiratory effort, lungs clear to auscultation Cardiovascular: RRR, no murmur, no edema Gastrointestinal (Abdomen): RUQ abd pain, BS hypoactive, soft Skin: no rashes, warm and dry no jaundice Psychiatric: A+Ox3, euthymic affect Lymphatic: no lymphedema Results & Data ([facility]) Vital Signs (Past 12 Hours) Vital Signs Temp Pulse Pulse Pulse Resp BP Pulse Ox 10/29/21 07:40 10/29/21 09:20 98 H 10/29/21 07:08 37.1 C 103 H 14 112/73 93 10/29/21 02:15 36.6 C 114 H 19 133/83 92 10/29/21 01:54 10/29/21 00:30 99 08/08/22 00:20 96 10/29/21 00:13 98 10/28/21 23:10 94 H 10 L 98 10/28/21 23:00 94 H 13 97 10/28/21 22:50 95 H 8 L 91 10/28/21 22:40 98 H 19 96 10/28/21 22:30 93 H 21 96 10/28/21 22:20 92 H 22 97 10/28/21 22:21 98 O2 Del Method 10/29/21 07:40 Room Air 10/29/21 09:20 10/29/21 07:08 Room Air 10/29/21 02:15 Room Air 10/29/21 01:54 Room Air 10/29/21 00:30 10/29/21 00:20 10/29/21 00:13 10/28/21 23:10 10/28/21 23:00 10/28/21 22:50 10/28/21 22:40 10/28/21 22:30 10/28/21 22:20 10/28/21 22:21 Room Air Diagnostic Findings ABDOMEN AND PELVIS CT WITH IV CONTRAST CT DOSE: 903.44 mGy.cm HISTORY: Acute upper abdominal pain with nausea epig abd pain TECHNIQUE: Multiaxial CT images of the abdomen and pelvis were performed following the IV administration of 93 cc of Optiray, A dose lowering technique was utilized adhering to the principles of ALARA. COMPARISON STUDY: Gallbladder ultrasound and MRCP studies of same day FINDINGS: Mild cardiomegaly with mitral annular and coronary arterial calcifi cations. Mild left hemidiaphragmatic elevation. Subpleural groundglass densities with reticulation suggestive of fibrosis. No pneumatosis or pneumoperitoneum. The spleen measures within the upper limits of normal in size. Unremarkable adrenal glands. Distended gallbladder with cholelithiasis and equivocal wall thickening. There is mild intrahepatic and extrahepatic biliary ductal promin ence with the common bile duct measuring 9 mm. Hyperdense filling defects are noted within the distal common bile duct on image 160 compatible with choledocholithiasis. There is equivocal stranding adjacent to the uncinate process of the pancreas. No pancreatic ductal dilation. The liver is otherwise unremarkable. Nonspecific bilateral perinephric stranding. No hydronephrosis. Prostamegaly. Urinary bladder wall thickening with partial distention. Small fat filled left inguinal hernia. Atherosclerosis of the aorta without aneurysm. There is no lymphadenopathy. There is no bowel obstruction or bowel wall thickening. Mild colonic diverticulosis. Normal appendix. No ascites or mesenteric inflammation. Degenerative changes of the spine, pelvis and hips. IMPRESSION: 1. Gallbladder distention with cholelithiasis and equivocal wall thickening, suspicious for acute cholecystitis. 2. Choledocholithiasis with mild biliary ductal dilation. 3. Equivocal inflammatory stranding adjacent to the uncinate process of the pancreas. Correlate with lipase level to exclude acute pancreatitis. 4. No bowel obstruction or bowel wall thickening. Normal appendix. 5. Colonic diverticulosis.
--- NOTE | 2021-10-29 10:27 | XRay Report ---
XR chest 1V portable CLINICAL HISTORY: abd pain TECHNIQUE: Single frontal radiograph of the chest was obtained. Comparison: None available at the time of this dictation. FINDINGS: No lines and tubes are seen. Calcified aortic knob is seen. Patchy airspace opacities are seen in the right greater than left lung base. There is elevation of left hemidiaphragm. No evidence of pleural effusion or pneumothorax. IMPRESSION: Multifocal airspace opacities may represent atelectasis, pneumonia, and/or aspiration. ACT 112: Negative or not required by law. Electronically signed by: Jeb Brambila M.D. 10/29/2021 10:25 AM
[2021-10-29] MEDS: LACTATED RINGER'S 1,000 ML IV SCH ×2 (10:42→17:49)
[2021-10-29] MEDS: PANTOprazole 40 MG TAB PO SCH (10:44)
[2021-10-29] MEDS: LOSARTAN POTASSIUM 25 MG TAB PO SCH (10:44)
[2021-10-29] MEDS: ASPIRIN 81 MG ECTAB PO SCH (10:44)
--- NOTE | 2021-10-29 11:30 | Hospitalist Progress Note ---
Date of Service October 29, 2021 Assessment & Plan (1) Acute gallstone pancreatitis: Plan: 76yo male with a history of T2DM, cholelithiasis, HLD, BPH, arthritis, steatohepatitis, and GERD presents with a few-hour history of abdominal pain, nausea, and vomiting. Gallstone pancreatitis/choledocholithiasis Pain onset after meals CTA/P with cholelithiasis, layering gravel like stones present and moderately distended gallbladder US-GB:Gallbladder distention with cholelithiasis. The gallbladder wall is not thickened however does appear to be slightly edematous. Findings are equivocal for acute cholecystitis. Consider correlation with nuclear medicine hepatobiliary scan. 2. The common bile duct measures within the upper limits of normal secondary to the choledocholithiasis seen on the comparison MRCP and CT abdomen and pelvis exams.3. Hepatic steatosis. Coverage for acute choley with Rocephin/Flagyl; patient reports tolerates penicillin but has a listed rash amoxicillin allergy which she is not sure MRCP pending read Pending ERCP with Dr. Crockett today Surgery consulted for cholecystectomy, anticipated for Friday after antibiotics/ERCP. Discussed with Dr. Sinclair. Continue IV FM Daily CMP/BMP DM2 - HbA1c 8.3% (06/2021) - Patient's home regimen held on admission - Continue BSG checks, sliding-scale insulin, hypoglycemic protocol HLD: hold home atorvastatin while NPO HTN: BP well-controlled on admission, holding home regimen while NPO GERD: holding home regimen while NPO FEN: NPO, NSS @ 80mL/hr increased to 100 cc/h for mild tachycardia, remaining n.p.o. Code status: DNI DVT ppx: SCDs Consults: gastroenterology Dispo: med/surg (2) Arthritis: (3) Cholelithiasis: (4) Diabetes mellitus type 2, uncontrolled: (5) Gastroesophageal reflux disease: (6) Hypercholesterolemia: (7) Steatohepatitis, nonalcoholic: Admission and Anticipated Discharge Date Admission Date: October 29, 2021 Subjective Seen at bedside. Continues to endorse some achy right lower quadrant pain, somewhat improved from prior but still present. Passing gas this morning. No bowel movement this morning. Denies fever, chills, sweats, shortness of breath, difficulty breathing, lightheadedness, dizziness. Appetite is somewhat suppressed. Is anticipating ERCP, and cholecystectomy subsequently to this likely Friday. No questions or concerns. Reports he has been able to take penicillin past, is not sure about amoxicillin of which she has a rash allergy listed. Review of Systems Review of Systems: All systems reviewed & are unremarkable except as noted in Subjective Physical Exam Physical Exam: General: A&Ox3. NAD. Cooperative. HEENT: Atraumatic, normocephalic. Pulm: CTAB A&P. -wheezes, -rales, -rhonchi. Symmetrical chest rise. No increase in work of breathing. No respiratory distress. Cardiac: Regular, tachycardic. No murmurs. Radial pulses intact and symmetrical. Abdominal: Mildly tender right upper quadrant. Nondistended, soft, no guarding Results & Data Results & Data ([facility]) Vital Signs (Past 12 Hours) Vital Signs Temp Pulse Pulse Resp BP BP Pulse Ox 10/29/21 10:32 37.2 C 107 H 18 124/77 92 10/29/21 07:40 10/29/21 09:20 98 H 10/29/21 07:08 37.1 C 103 H 14 112/73 93 10/29/21 02:15 36.6 C 114 H 19 133/83 92 10/29/21 01:54 10/29/21 00:30 99 10/29/21 00:20 96 10/29/21 00:13 98 O2 Del Method 10/29/21 10:32 Room Air 10/29/21 07:40 Room Air 10/29/21 09:20 10/29/21 07:08 Room Air 10/29/21 02:15 Room Air 10/29/21 01:54 Room Air 10/29/21 00:30 10/29/21 00:20 10/29/21 00:13 PG Care Time/CCT Total # of Minutes Spent Total Time Spent with Patient: Total time spent is greater than 50% in coordination of care (as documented) at patient's floor/unit and/or counseling patient: Coding Level of Care Code 88780 Subseq Hosp Care Lvl 2 Diagnoses Acute gallstone pancreatitis K85.10 Arthritis M19.90 Cholelithiasis K80.20 Diabetes mellitus type 2, uncontrolled E11.65 Gastroesophageal reflux disease K21.9 Hypercholesterolemia E78.00 Steatohepatitis, nonalcoholic K75.81
[2021-10-29] MEDS: cefTRIAXone SODIUM 2,000 MG in DEXTROSE 5% 50 ML IV SCH (13:21)
--- NOTE | 2021-10-29 13:44 | Magnetic Resonance Report ---
MR MRCP CLINICAL HISTORY: concern for gallstone pancreatitis TECHNIQUE: Multiplanar multisequence MR images of the abdomen were obtained, as per MRCP protocol. . COMPARISON: Comparison is made to right upper quadrant ultrasound 10/29/2021 FINDINGS: Lower chest: No acute abnormality Liver: Unremarkable. No focal lesions are seen. Gallbladder and biliary tree: Cholelithiasis is seen without evidence of cholecystitis. The gallbladd er wall does not appear to be thickened. No intra- or extrahepatic biliary ductal dilation. Pancreas: Unremarkable, no focal lesions. Spleen: Splenule is incidentally noted. Adrenals: Unremarkable. Kidneys and ureters: Unremarkable. Bowel: Unremarkable. Lymph nodes Retroperitoneal: Unremarkable. Mesenteric: Unremarkable. Peritoneum: Normal Vessels: Unremarkable. Abdominal wall: Unremarkable. Bones: Unremarkable. IMPRESSION: The pancreas is normal, no evidence of gallstone pancreatitis is seen. Cholelithiasis is seen without gallbladder wall thickening to suggest cholecystitis. ACT 112: Negative or not required by law. Electronically signed by: Jeb Brambila M.D. 10/29/2021 1:43 PM
--- NOTE | 2021-10-29 13:48 | Surgery Consultation ---
Date of Consultation October 29, 2021 Assessment & Plan (1) Cholelithiasis: pt is a 76 year-old male who was admitted to hospital for gallstone pancreatitis, acute cholecystitis, cholelithiasis, IMP: gallstone pancreatitis, acute cholecystitis, cholelithiasis, plan, I recommend to have ERCP first, monitor lipase, possible do laparoscopic cholecystectomy on 10/31/2021 if lipase down, D/P benefits, risks and alternatives of the surgery, pt understood, he agrees with the plan, I answered all questions, will F/U, continue conservative treatment, Supervising Physician Co-Signing Physician Notes Attending addendum: I have physically seen this patient, have supervised the medical residents activities, and agree with the H&P unless as otherwise noted. Assessment and Plan: Acute gallstone pancreatitis- AST 40, lipase 5212 CT abdomen pelvis with cholelithiasis and distended gallbladder wall NPO Order MRCP Consult gastroenterology Zosyn 4.5 g IV every 8 hours NSS 80 mils per hour Zofran 4 mg IV every 6 hours as needed Famotidine 20 mg IV every 12 hours Diabetes mellitus- Hold glipizide, metformin Placed on Accu-Cheks before meals and at bedtime/every 6 hours with NovoLog coverage per scale Remaining orders and notations as noted History of Present Illness Reason for Consultation: acute cholecystitis, cholelithiasis Requesting Physician: madhu Huff MD Attending Physician: Madhu Huff MD History of Present Illness History of Present Illness Primary Care Provider: JUDD Jacobs 76yo male with a history of T2DM, cholelithiasis, HLD, BPH, arthritis, steatohepatitis, and GERD presents with a few-hour history of abdominal pain, nausea, and vomiting. Symptoms began shortly after patient started breakfast. Patient notes his pain is primarily RUQ pain which is constant and dull. Has never had pain like this before. Became nauseous shortly after the pain began; had one episode of vomiting which was nonbloody and nonbilious. Has a history of gallstones but has never had any abdominal surgeries before. Patient denies fever, chills, headache, vision changes, CP, palpitations, SOB, edema, dysuria, hematochezia, melena, lightheadedness, dizziness, numbness, tingling, weakness, or other symptoms. Denies recent illness and recent travel. Upon arrival, vitals were stable; BP not elevated or low, no tachycardia, no tachypnea, afebrile, spO2 adequate on room air. Initial labs were notable for mild leukocytosis (12.9), minimally elevated AST (40), minimally elevated alk phos (108), and significantly elevated lipase (5212). In the ED, patient received NSS 1L bolus (x1), morphine IV 8mg in total, and toradol IV 15mg (x1). Surrogate decision-maker in case of an emergency: Madison Nuñez (cell: [phone]) I ( Soren Sinclair mD ) got a call for consult acute cholecystitis, cholelithiasis, I reviewed pt's H/P, labs, U/S study, CT scan with pt, pt will have ERCP today, Allergies Allergy/AdvReac Type Severity Reaction Status Date / Time amoxicillin Allergy Intermediate Rash Verified 10/28/21 22:37 aspartame AdvReac Intermediate HEADACHES Verified 10/28/21 22:37 lisinopril AdvReac Intermediate NAUSEA Verified 10/28/21 22:37 Home Medications Medication Instructions Recorded Confirmed Type cholecalciferol (vitamin D3) 10 400 units PO QPM 10/09/18 10/28/21 History mcg (400 unit) capsule cinnamon bark 500 mg capsule 1,000 mg PO QPM 10/27/18 10/28/21 Hi story (Cinnamon) multivit,Ca,min-iron 8 mg-folic 1 tab PO QAM 10/27/18 10/28/21 History acid 200 mcg-lycopene 600 mcg tablet (Centrum Ultra Men's) naproxen sodium 220 mg tablet 220 mg PO BID PRN pain 10/27/18 2 History fexofenadine 180 mg tablet 180 mg PO QPM 11/22/19 10/28/21 Hist ory atorvastatin 80 mg tablet 80 mg PO HS #90 tabs 01/03/21 10/28/21 Rx metformin 500 mg tablet 1,000 mg PO BID #360 tabs 02/05/21 10/28/21 R x omeprazole 40 mg capsule,delayed 40 mg PO QAM #90 caps 02/05/2110/28 Rx release glipizide 5 mg tablet, extended 10 mg PO BID 07/04/21 10/28/21 History release 24 hr E blood sugar diagnostic #50 ea 09/05/21 09/27/21 Rx losartan 25 mg tablet 25 mg PO QAM #90 tabs 09/18/21 10/28/21 Rx aspirin 81 mg tablet,delayed 81 mg PO DAILY 10/28/21 10/28/21 Hi story release tacrolimus 0.1 % topical ointment 1 applic topical BID PRN Skin 10/28/21 10/28/21 History Irritation Past Med/Surg History Medical History Gastroesophageal reflux disease History of colon polyps History of Lyme disease HTN (hypertension) Hypercholesterolemia Osteoarthritis Steatohepatitis, nonalcoholic Type 2 diabetes mellitus NIDDM Surgical History History of Achilles tendon repair RightHistory of ankle surgery LeftHistory of colonoscopy History of foot surgery LeftHistory of surgery removal of hardware from left foot - reports hardware broke and metal still present in footHistory of tonsillectomy History of wisdom tooth extraction Family History Father Coronary heart disease Myocardial infarctionMother Coronary heart disease Myocardial infarctionBrother Coronary heart disease Myocardial infarctionSon Type 1 diabetes mellitus Diabetic gastroparesisUnknown DiabetesOther No family history of adverse response to anesthesia Denies family history of Ovarian cancer Prostate cancer Breast cancer Colorectal cancer Social History Smoking Status: Never smoker Second Hand Exposure: Yes (as a child); Hx Alcohol Use: No Hx Substance Use: No Preferred Language: Mohawk Communication Ability: Effective Visual Impairment: No Limitations Hearing Ability: Normal Supervisor [employer] Required: No Beliefs That Will Affect Care: None marital status: Current Living Situation: Spouse current occupational status: retired 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 Age Other Information That Helps Us Care for You: No Feels Safe at Home: Yes Safety Concerns: Feels Safe At This Time Childhood Exposure to Second-Hand Smoke: Yes caffeine: Yes Dental Care, Regularly: Yes Physical Activity Frequency: Daily Seatbelt Use: always Sunscreen Use: Yes Assistive Devices: Glasses Allergies Allergy/AdvReac Type Severity Reaction Status Date / Time amoxicillin Allergy Intermediate Rash Verified 10/28/21 22:37 aspartame AdvReac Intermediate HEADACHES Verified 10/28/21 22:37 lisinopril AdvReac Intermediate NAUSEA Verified 10/28/21 22:37 Home Medications Medication Instructions Recorded Confirmed Type cholecalciferol (vitamin D3) 10 400 units PO QPM 10/09/18 10/28/21 History mcg (400 unit) capsule cinnamon bark 500 mg capsule 1,000 mg PO QPM 10/27/18 10/28/21 History (Cinnamon) multivit,Ca,min-iron 8 mg-folic 1 tab PO QAM 10/27/18 10/28/21 History acid 200 mcg-lycopene 600 mcg tablet (Centrum Ultra Men's) naproxen sodium 220 mg tablet 220 mg PO BID PRN pain 10/27/18 10/28/21 History fexofenadine 180 mg tablet 180 mg PO QPM 11/22/19 10/28/21 History atorvastatin 80 mg tablet 80 mg PO HS #90 tabs 01/03/21 10/28/21 Rx metformin 500 mg tablet 1,000 mg PO BID #360 tabs 02/05/21 10/28/21 Rx omeprazole 40 mg capsule,delayed 40 mg PO QAM #90 caps 02/05/21 10/28/21 Rx release glipizide 5 mg tablet, extended 10 mg PO BID 07/04/21 10/28/21 History release 24 hr blood sugar diagnostic #50 ea 09/05/21 09/27/21 Rx losartan 25 mg tablet 25 mg PO QAM #90 tabs 09/18/21 10/28/21 Rx aspirin 81 mg tablet,delayed 81 mg PO DAILY 10/28/21 10/28/21 History release tacrolimus 0.1 % topical ointment 1 applic topical BID PRN Skin 10/28/21 10/28/21 History Irritation Patient History Medical History Gastroesophageal reflux disease History of colon polyps History of Lyme disease HTN (hypertension) Hypercholesterolemia Osteoarthritis Steatohepatitis, nonalcoholic Type 2 diabetes mellitus NIDDM Surgical History History of Achilles tendon repair Right History of ankle surgery Left History of colonoscopy History of foot surgery Left History of surgery removal of hardware from left foot - reports hardware broke and metal still present in foot History of tonsillectomy History of wisdom tooth extraction Family History Father Coronary heart disease Myocardial infarction Mother Coronary heart disease Myocardial infarction Brother Coronary heart disease Myocardial infarction Son Type 1 diabetes mellitus Diabetic gastroparesis Unknown Diabetes Other No family history of adverse response to anesthesia Denies family history of Ovarian cancer Prostate cancer Breast cancer Colorectal cancer Social History Smoking Status: Never smoker Second Hand Exposure: Yes (as a child); Hx Alcohol Use: No Hx Substance Use: No Preferred Language: Mohawk Communication Ability: Effective Visual Impairment: No Limitations Hearing Ability: Normal Supervisor [employer] Required: No Beliefs That Will Affect Care: None marital status: Current Living Situation: Spouse current occupational status: retired 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 Age Other Information That Helps Us Care for You: No Feels Safe at Home: Yes Safety Concerns: Feels Safe At This Time Childhood Exposure to Second-Hand Smoke: Yes caffeine: Yes Dental Care, Regularly: Yes Physical Activity Frequency: Daily Seatbelt Use: always Sunscreen Use: Yes Assistive Devices: Glasses Physical Exam Constitutional: WD/WN, vitals as above Eyes: PERRL, conjunctivae normal, anicteric sclerae Neck: trachea midline, no thyromegaly Respiratory: normal respiratory effort, lungs clear to auscultation Cardiovascular: RRR, no murmur, no edema Gastrointestinal (Abdomen): soft, mild tenderness at RUQ, no rebound pain, no distend, BS+ Musculoskeletal: no cyanosis or clubbing, extremities motor strength 5/5 Neurologic: patellar DTR's 2+ bilat, sensation intact Psychiatric: A+Ox3, euthymic affect Results & Data ([facility]) Vital Signs (Past 12 Hours) Vital Signs Temp Pulse Pulse Resp BP BP Pulse Ox 10/29/21 10:32 37.2 C 107 H 18 124/77 92 10/29/21 07:40 10/29/21 09:20 98 H 10/29/21 07:08 37.1 C 103 H 14 112/73 93 10/29/21 02:15 36.6 C 114 H 19 133/83 92 10/29/21 01:54 O2 Del Method 10/29/21 10:32 Room Air 10/29/21 07:40 Room Air 10/29/21 09:20 10/29/21 07:08 Room Air 10/29/21 02:15 Room Air 10/29/21 01:54 Room Air Laboratory Results Abnormal lab results 10/28/21 10/28/21 10/29/21 Range/Units 22:11 22:11 02:15 WBC 12.89 H (4.8-10.8) K/ul RBC (4.63-6.08) M/uL Hgb (14.0-18.0) g/dl Neut # (Auto) 6.61 H (1.4-6.5) K/uL Lymph # (Auto) 4.82 H (1.2-3.4) K/uL [place] # (Auto) 0.93 H (0.24-0.82) K/uL Immature Gran # (Auto) 0.05 H (0.00-0.02) K/uL Anion Gap 13 H (3-11) BUN/Creatinine Ratio (10-20) Glucose 192 H (70-99(Fasting)) mg/dl POC Glucose 191 H (70-99) mg/dl Hemoglobin A1c (4.5-5.6) % Calcium (8.5-10.1) mg/dl AST 40 H (13-39) U/L Alkaline Phosphatase 108 H (34-104) U/L Lipase 5212 H (11-82) U/L Ur Specific [place] (1.000-1.030) 10/29/21 10/29/21 10/29/21 Range/Units 05:59 06:35 07:35 WBC (4.8-10.8) K/ul RBC 4.53 L (4.63-6.08) M/uL Hgb 13.5 L (14.0-18.0) g/dl Neut # (Auto) 8.13 H (1.4-6.5) K/uL Lymph # (Auto) (1.2-3.4) K/uL [place] # (Auto) 0.85 H (0.24-0.82) K/uL Immature Gran # (Auto) (0.00-0.02) K/uL Anion Gap (3-11) BUN/Creatinine Ratio (10-20) Glucose (70-99(Fasting)) mg/dl POC Glucose 133 H (70-99) mg/dl Hemoglobin A1c (4.5-5.6) % Calcium (8.5-10.1) mg/dl AST (13-39) U/L Alkaline Phosphatase (34-104) U/L Lipase (11-82) U/L Ur Specific [place] > 1.045 H (1.000-1.030) 10/29/21 10/29/21 10/29/21 Range/Units 07:35 07:35 11:45 WBC (4.8-10.8) K/ul RBC (4.63-6.08) M/uL Hgb (14.0-18.0) g/dl Neut # (Auto) (1.4-6.5) K/uL Lymph # (Auto) (1.2-3.4) K/uL [place] # (Auto) (0.24-0.82) K/uL Immature Gran # (Auto) (0.00-0.02) K/uL Anion Gap (3-11) BUN/Creatinine Ratio 24.7 H (10-20) Glucose 142 H (70-99(Fasting)) mg/dl POC Glucose 143 H (70-99) mg/dl Hemoglobin A1c 8.5 H (4.5-5.6) % Calcium 7.7 L (8.5-10.1) mg/dl AST (13-39) U/L Alkaline Phosphatase (34-104) U/L Lipase (11-82) U/L Ur Specific [place] (1.000-1.030) Diagnostic Findings US gallbladder HISTORY: 76 years-old Male stones, pain . Upper quadrant abdominal pain COMPARISON: CT abdomen and pelvis of same day TECHNIQUE: Multiple real-time sonographic images of the abdominal right upper quadrant were obtained assessing grayscale appearance and color flow FINDINGS: Limited visualization of the pancreas secondary to obscuring bowel gas. The common bile duct measures 7 mm transversely. There is increased echogenicity of the liver with poor through transmission. No hepatic mass identified. Distended gallbladder with cholelithiasis. The gallbladder wall appears slightly edematous however measures 2 mm. No definite pericholecystic fluid. The sonographic Villatoro sign was unable to be assessed secondary to patient recently receiving pain medication. The imaged right kidney is unremarkable without hydronephrosis. IMPRESSION: 1. Gallbladder distention with cholelithiasis. The gallbladder wall is not thickened however does appear to be slightly edematous. Findings are equivocal for acute cholecystitis. Consider correlation with nuclear medicine hepatobiliary scan. 2. The common bile duct measures within the upper limits of normal secondary to the choledocholithiasis seen on the comparison MRCP and CT abdomen and pelvis exams. 3. Hepatic steatosis. ABDOMEN AND PELVIS CT WITH IV CONTRAST CT DOSE: 903.44 mGy.cm HISTORY: Acute upper abdominal pain with nausea epig abd pain TECHNIQUE: Multiaxial CT images of the abdomen and pelvis were performed following the IV administration of 93 cc of Optiray, A dose lowering technique was utilized adhering to the principles of ALARA. COMPARISON STUDY: Gallbladder ultrasound and MRCP studies of same day FINDINGS: Mild cardiomegaly with mitral annular and coronary arterial calcifications. Mild left hemidiaphragmatic elevation. Subpleural groundglass densities with reticulation suggestive of fibrosis. No pneumatosis or pneumoperitoneum. The spleen measures within the upper limits of normal in size. Unremarkable adrenal glands. Distended gallbladder with cholelithiasis and equivocal wall thickening. There is mild intrahepatic and extrahepatic biliary ductal prominence with the common bile duct measuring 9 mm. Hyperdense filling defects are noted within the distal common bile duct on image 160 compatible with choledocholithiasis. There is equivocal stranding adjacent to the uncinate process of the pancreas. No pancreatic ductal dilation. The liver is otherwise unremarkable. Nonspecific bilateral perinephric stranding. No hydronephrosis. Prostamegaly. Urinary bladder wall thickening with partial distention. Small fat filled left inguinal hernia. Atherosclerosis of the aorta without aneurysm. There is no lymphadenopathy. There is no bowel obstruction or bowel wall thickening. Mild colonic diverticulosis. Normal appendix. No ascites or mesenteric inflammation. Degenerative changes of the spine, pelvis and hips. IMPRESSION: 1. Gallbladder distention with cholelithiasis and equivocal wall thickening, suspicious for acute cholecystitis. 2. Choledocholithiasis with mild biliary ductal dilation. 3. Equivocal inflammatory stranding adjacent to the uncinate process of the pancreas. Correlate with lipase level to exclude acute pancreatitis. 4. No bowel obstruction or bowel wall thickening. Normal appendix. 5. Colonic diverticulosis.
[2021-10-29] MEDS ORDERED: PROPOFOL IV EMULSION 10 MG/ML 20 ML VIAL IV ONE (13:57)
[2021-10-29] MEDS ORDERED: ONDANSETRON INJ 2 MG/ML 2 ML VIAL ONE (13:57)
[2021-10-29] MEDS ORDERED: MIDAZOLAM HCL 1 MG/ML 2ML VIAL ONE (13:57)
[2021-10-29] MEDS ORDERED: fentaNYL citrate 100 MCG/2 ML VIAL ONE (13:57)
[2021-10-29] MEDS ORDERED: DEXAMETHASONE SOD INJ 4 MG/ML VIAL ONE (13:57)
[2021-10-29] MEDS: metroNIDAZOLE 500 MG/100 ML BAG IV SCH ×2 (14:10→20:14)
--- NOTE | 2021-10-29 14:40 | History & Physical Bridge Note ---
Date of Service October 29, 2021 History & Physical Bridge Note I have examined the patient, reviewed the History & Physical and in the interval since the performance of the History & Physical I have noted the following changes of clinical significance: no changes noted. ERCP planned for today for biliary decompression due to choledocholithiasis seen on CT scan.
[2021-10-29] MEDS ORDERED: HYDROmorphone INJ 2 MG/ML SYR/VIAL IV PRN (14:47)
[2021-10-29] MEDS ORDERED: fentaNYL citrate 100 MCG/2 ML VIAL IV PRN (14:47)
[2021-10-29] MEDS ORDERED: ATROPINE SULFATE 0.1 MG/ML 10ML SYR IV PRN (14:47)
[2021-10-29] MEDS ORDERED: ePHEDrine sulfate 50 MG/ML AMP IV PRN (14:47)
[2021-10-29] MEDS ORDERED: ONDANSETRON INJ 2 MG/ML 2 ML VIAL IV PRN (14:47)
--- NOTE | 2021-10-29 14:47 | Anesthesiology Consultation ---
Date of Service October 29, 2021 Assessment & Plan ASA ASA3 Proposed Anesthesia Anesthesia Type: General Risk / Benefits Reviewed With: PT / POA / Parent / Guardian, Accepts Plan and Informed Consent Obtained History Surgery Operation Date: 10/29/21 07:00 Proposed Procedures p Endoscopic Retrograde Cholangiopancreato - Shakira Crockett, Height/Weight Height: 5 ft 10 in Weight: 98.2 kg Allergies Allergy/AdvReac Type Severity Reaction Status Date / Time amoxicillin Allergy Intermediate Rash Verified 10/28/21 22:37 aspartame AdvReac Intermediate HEADACHES Verified 10/28/21 22:37 lisinopril AdvReac Intermediate NAUSEA Verified 10/28/21 22:37 Medications Home Medications Medication Instructions Recorded Confirmed Last Taken cholecalciferol (vitamin D3) 10 400 units PO QPM 10/09/18 10/28/21 10/28/21 mcg (400 unit) capsule cinnamon bark 500 mg capsule 1,000 mg PO QPM 10/27/18 10/28/21 10/28/21 (Cinnamon) multivit,Ca,min-iron 8 mg-folic 1 tab PO QAM 10/27/18 10/28/21 10/28/21 acid 200 mcg-lycopene 600 mcg tablet (Centrum Ultra Men's) naproxen sodium 220 mg tablet 220 mg PO BID PRN pain 10/27/18 10/28/21 Unknown fexofenadine 180 mg tablet 180 mg PO QPM 11/22/19 10/28/21 10/28/21 atorvastatin 80 mg tablet 80 mg PO HS #90 tabs 01/03/21 10/28/21 10/28/21 metformin 500 mg tablet 1,000 mg PO BID #360 tabs 02/05/21 10/28/21 10/28/21 omeprazole 40 mg capsule,delayed 40 mg PO QAM #90 caps 02/05/21 10/28/21 10/28/21 release glipizide 5 mg tablet, extended 10 mg PO BID 07/04/21 10/28/21 10/28/21 release 24 hr blood sugar diagnostic #50 ea 09/05/21 09/27/21 Unknown losartan 25 mg tablet 25 mg PO QAM #90 tabs 09/18/21 10/28/21 10/28/21 aspirin 81 mg tablet,delayed 81 mg PO DAILY 08/10/1210/28/21 10/28/21 release tacrolimus 0.1 % topical ointment 1 applic topical BID PRN Skin 10/28/21 10/28/21 Unknown Irritation Active Medications Generic Name Dose Route Start Last Admin Trade Name Jennifer PRN Reason Stop Dose Admin Aspirin 81 mg 10/29/21 09:00 10/29/21 10:44 Aspirin 81 Mg Ectab PO 11/28/21 08:59 Not Given DAILY GEOVANNY Lactated Ringer's 1,000 mls @ 125 mls/hr 10/29/21 10:30 10/29/21 14:10 Lr IV 11/28/21 10:29 125 mls/hr .Q8H GEOVANNY Infusion Ceftriaxone Sodium 2,000 mg/ 70 mls @ 100 mls/hr 10/29/21 13:00 10/29/21 14:07 Dextrose IV 11/08/21 12:59 Infused Q24H GEOVANNY Infusion Protocol Metronidazole 500 mg in 100 mls @ 100 mls/hr 10/29/21 14:00 10/29/21 14:10 Flagyl IV 11/08/21 13:59 100 mls/hr Q8H GEOVANNY Administration Insulin Aspart 0 units 10/29/21 01:00 10/29/21 11:50 Insulin Aspart Per Unit SC 11/28/21 00:59 Not Given Q6 GEOVANNY Ketorolac Tromethamine 15 mg 10/29/21 00:33 10/29/21 13:21 Ketorolac Tromethamine 15 Mg/Ml Vial IV 11/03/21 00:32 15 mg Q6H PRN Administration Mild pain Losartan Potassium 25 mg 10/29/21 09:00 10/29/21 10:44 Losartan Potassium 25 Mg Tab PO 11/28/21 08:59 Not Given QAM GEOVANNY Pantoprazole Sodium 40 mg 10/29/21 09:00 10/29/21 10:44 Pantoprazole 40 Mg Tab PO 11/28/21 08:59 Not Given QAM GEOVANNY NPO Date Last Intake of Fluids: 10/28/21 Time Last Intake of Fluids: 18:00 Date Last Intake of Solids: 10/28/21 Time Last Intake of Solids: 18:00 Past Medical History Medical History Gastroesophageal reflux disease History of colon polyps History of Lyme disease HTN (hypertension) Hypercholesterolemia Osteoarthritis Steatohepatitis, nonalcoholic Type 2 diabetes mellitus NIDDM Exercise / Class Metabolic Activity II 4-5 Yardwork/Stairs/Walk up hill Past Family History Family History Father Coronary heart disease Myocardial infarction Mother Coronary heart disease Myocardial infarction Brother Coronary heart disease Myocardial infarction Son Type 1 diabetes mellitus Diabetic gastroparesis Unknown Diabetes Other No family history of adverse response to anesthesia Denies family history of Ovarian cancer Prostate cancer Breast cancer Colorectal cancer Past Surgical History Surgical History History of Achilles tendon repair Right History of ankle surgery Left History of colonoscopy History of foot surgery Left History of surgery removal of hardware from left foot - reports hardware broke and metal still present in foot History of tonsillectomy History of wisdom tooth extraction Past Anesthesia History No Hx of Anesthesia Complications and No Family Hx of Anesthesia Complications History of PONV No Hx of PONV and No Hx of Motion Sickness Social History Smoking Status: Never smoker Hx Alcohol Use: No alcohol intake frequency: holidays/special occasions only Hx Substance Use: No substance use type: does not use Review of Systems denies fever/cough/ colds/ chest pain/ SOB/ GARCIA denies GARCIA Physical Exam Vital Signs Last Vital Signs Temp 36.8 C 10/29/21 14:33 Pulse 109 H 10/29/21 14:33 Resp 20 10/29/21 14:33 BP 106/75 10/29/21 14:33 Pulse Ox 95 10/29/21 14:33 O2 Del Method 10/29/21 14:33 ENMT Mouth: no TMJ abnormality and no dentition abnormality Thyromental Distance: > or= 3.5 Finger Breadths Mallampati Class: II Neck neck extension not limited Respiratory normal respiratory effort; no respiratory distress Auscultation: lungs clear to auscultation bilaterally Cardiovascular Rate/Rhythm: regular rate and regular rhythm Neurologic moves all extremities Psychiatric Orientation: alert and oriented x 3 Testing Laboratory Results 10/29/21 07:35 10/29/21 07:35 Hemoglobin A1c 8.5 % (4.5-5.6) H 10/29/21 07:35 Urine Color Yellow 10/29/21 06:35 Urine Appearance Clear (Clear) 10/29/21 06:35 Urine pH 5.0 (4.5-7.5) 10/29/21 06:35 Ur Specific [place] > 1.045 (1.000-1.030) H 10/29/21 06:35 Urine Protein Negative (Negative) 10/29/21 06:35 Urine Glucose (UA) Negative (Negative) 10/29/21 06:35 Urine Ketones Negative (Negative) 10/29/21 06:35 Urine Nitrite Negative (Negative) 10/29/21 06:35 Ur Leukocyte Esterase Negative (Negative) 10/29/21 06:35 10/29/21 10/29/21 11:45 05:59 POC Glucose 143 H 133 H
[2021-10-29] MEDS ORDERED: KETAMINE 50 MG/5 ML SYRINGE ONE (14:54)
--- NOTE | 2021-10-29 15:18 | Post Operative Brief Note ---
Immediate Post Op Note v1 Date of Surgery October 29, 2021 Pre & Post Diagnosis Operation Date: 10/29/21 07:00 Pre-Op Diagnosis: Gallstone Pancreatitis Post-Op Diagnosis: Numerous CBD stones I identified the patient and participated in the time-out.: Yes Procedure Operation Date: 10/29/21 07:00 Actual Procedures p Endoscopic retrograde Cholangiopancreatography (Not Applicable) - Shakira Crockett DO Surgeon Shakira Crockett, Wood Turner None Estimated Blood Loss 0 Findings Consistent with Post-Op Diagnosis
--- NOTE | 2021-10-29 15:19 | Communication Note ---
Date of Service: October 29, 2021 The patient underwent urgent ERCP today for gallstone pancreatitis and CT showing choledocholithiasis. The procedure went without difficulty, multiple stones removed from the common bile duct and a biliary stent was placed. Recommendation Continue IV hydration Continue broad-spectrum antibiotic coverage Avoid use of nonsteroidals / anticoagulation for 5 days please Cholecystectomy per general surgery Repeat ERCP for stent removal in 6 to 8 weeks
--- NOTE | 2021-10-29 15:27 | GI REPORT ---
Patient Name: Zane Nuñez Procedure Date: 10/29/2021 3:00 PM Date of : 1945 Admit Type: Inpatient Age: 76 Gender: Male Attending MD: Shakira Crockett DO Procedure: ERCP Providers: Shakira Crockett DO Referring MD: Simeon Dennis Md, Madhu Huff Md Indications: Abdominal pain of suspected biliary origin, Bile duct stone on Computed Tomogram Scan, For therapy of bile duct stone(s), Elevated liver enzymes Medicines: Monitored Anesthesia Care Complications: No immediate complications. Estimated blood loss: Minimal. Estimated Blood Loss: Estimated blood loss was minimal. Procedure: Pre-Anesthesia Assessment: - Prior to the procedure, a History and Physical was performed, and patient medications, allergies and sensitivities were reviewed. The patient's tolerance of previous anesthesia was reviewed. - The risks and benefits of the procedure and the sedation options and risks were discussed with the patient. All questions were answered and informed consent was obtained. - Patient identification and proposed procedure were verified prior to the procedure by the physician, the nurse and the equipment sales specialist. The procedure was verified in the procedure room. - Pre-procedure physical examination revealed no contraindications to sedation. - ASA Grade Assessment: III - A patient with severe systemic disease. - After reviewing the risks and benefits, the patient was deemed in satisfactory condition to undergo the procedure. - The anesthesia plan was to use monitored anesthesia care (MAC). - Immediately prior to administration of medications, the patient was re-assessed for adequacy to receive sedatives. - The heart rate, respiratory rate, oxygen saturations, blood pressure, adequacy of pulmonary ventilation, and response to care were monitored throughout the procedure. - The physical status of the patient was re-assessed after the procedure. After obtaining informed consent, the scope was passed under direct vision. Throughout the procedure, the patient's blood pressure, pulse, and oxygen saturations were monitored continuously. The Duodenoscope was introduced through the mouth, and advanced to the duodenum and used to inject contrast into the bile duct. The ERCP was accomplished without difficulty. The patient tolerated the procedure well. Findings: The salvage diver film was normal. The esophagus was successfully intubated under direct vision without detailed examination of the pharynx, larynx, and associated structures, and upper GI tract. The upper GI tract was grossly normal. The major papilla was normal. The bile duct was deeply cannulated with the short-nosed traction sphincterotome and guidewire (PD not cannualted or injected today). Contrast was injected. I personally interpreted the bile duct images. Contrast extended to the hepatic ducts. The lower third of the main bile duct and middle third of the main bile duct contained filling defect(s) thought to be a stone and sludge. Biliary sphincterotomy was made with a monofilament Fusion OMNI sphincterotome using ERBE electrocautery. There was no post-sphincterotomy bleeding. To discover objects, the biliary tree was swept with an 11.5 mm balloon starting at the bifurcation. Sludge was swept from the duct. Many stones were removed. No stones remained. One 10 Fr by 7 cm biliary stent with a single external flap and a single internal flap was placed 7 cm into the common bile duct. Bile flowed through the stent. The stent was in good position. The endoscope was withdrawn from the patient. The total fluoroscopy exposure time was 30 seconds. Indomethacin 100 mg was given via suppository to decrease the risk of post-ERCP pancreatitis (PEP). Impression: - The major papilla appeared normal. - A filling defect consistent with a stone and sludge was seen on the cholangiogram. - Choledocholithiasis was found. Complete removal was accomplished by biliary sphincterotomy and balloon extraction. - One biliary stent was placed into the common bile duct. - Indomethacin given to decrease risk of post-ERCP pancreatitis. Recommendation: - Avoid aspirin and nonsteroidal anti-inflammatory medicines for 5 days. - Clear liquid diet. - Use broad spectrum antibiotics for 10 days. - Repeat ERCP in 6 weeks to remove stent. Shakira Crockett D.O. Shakira Crockett DO 10/29/2021 3:27:26 PM This report has been signed electronically. Note Initiated On: 10/29/2021 3:00 PM Number of Addenda: 0 I attest to the content of the Intraoperative Record and orders documented therein, exceptions below {[id number]}
--- NOTE | 2021-10-29 15:39 | Anesthesiology Progress Note ---
Date of Service October 29, 2021 Anesthesia Post Procedure Vital Signs Vital Signs: Temp Pulse Pulse Pulse Resp BP BP 10/29/21 15:30 37.0 C 99 H 14 138/84 10/29/21 15:21 37.0 C 109 H 12 117/22 L 10/29/21 14:33 36.8 C 109 H 20 106/75 10/29/21 10:32 37.2 C 107 H 18 124/77 10/29/21 07:40 10/29/21 09:20 98 H 10/29/21 07:08 37.1 C 103 H 14 10/29/21 02:15 36.6 C 114 H 19 10/29/21 01:54 10/29/21 00:30 10/29/21 00:20 10/29/21 00:13 10/28/21 23:10 94 H 10 L 10/28/21 23:00 94 H 13 10/28/21 22:50 95 H 8 L 10/28/21 22:40 98 H 19 10/28/21 22:30 93 H 21 10/28/21 22:20 92 H 22 10/28/21 22:10 95 H 21 10/28/21 22:03 97 H 21 10/28/21 22:21 10/28/21 21:54 36.7 C 87 20 128/76 BP Pulse Ox O2 Del Method O2 Flow Rate 10/29/21 15:30 99 Oxymask 5 10/29/21 15:21 95 Room Air 10/29/21 14:33 95 Room Air 10/29/21 10:32 92 Room Air 10/29/21 07:40 Room Air 10/29/21 09:20 10/29/21 07:08 112/73 93 Room Air 10/29/21 02:15 133/83 92 Room Air 10/29/21 01:54 Room Air 10/29/21 00:30 99 10/29/21 00:20 96 10/29/21 00:13 98 10/28/21 23:10 98 10/28/21 23:00 97 10/28/21 22:50 91 10/28/21 22:40 96 10/28/21 22:30 96 10/28/21 22:20 97 10/28/21 22:10 10/28/21 22:03 10/28/21 22:21 98 Room Air 10/28/21 21:54 100 Room Air Pain Intensity Abdomen: Pain Intensity: 0 Transfer of Care Handoff Completed per policy Notes Mental Status: alert / awake / arousable and participated in evaluation Patient Amnestic to Procedure: Yes Nausea / Vomiting: adequately controlled Pain: adequately controlled Airway Patency, RR, SpO2: stable & adequate BP & HR: stable & adequate Hydration State: stable & adequate Anesthetic Complications: no major complications apparent and Pt Satisfied with anesthetic care
--- NOTE | 2021-10-29 15:43 | Fluoroscopy Report ---
[place] ERCP biliary ductal CLINICAL HISTORY: Cholelithiasis. Evaluate common bile duct. COMPARISON STUDY: MRCP from 10/29/2021 FLUOROSCOPY TIME: 34 seconds. FLUOROSCOPIC IMAGES: 11 FINDINGS: The common bile duct was catheterized and contrast was injected. Multiple C-arm images were obtained. IMPRESSION: Status post ERCP. Please see postoperative report for further evaluation. ACT 112: Negative or not required by law. Electronically signed by: Rogelio Dobbins M.D. 10/29/2021 3:42 PM
[2021-10-29] MEDS ORDERED: Nursing to Pharmacy Communication SCH (18:15)
[2021-10-29] MEDS: ATORVASTATIN 40 MG TAB PO SCH (20:13)
[2021-10-30] MEDS: LACTATED RINGER'S 1,000 ML IV SCH ×2 (04:48→19:20)
[2021-10-30] MEDS: metroNIDAZOLE 500 MG/100 ML BAG IV SCH ×3 (05:26→21:05)
--- NOTE | 2021-10-30 05:39 | Electrocardiogram Report ---
Test Reason : Blood Pressure : / mmHG Vent. Rate : 075 BPM Atrial Rate : 075 BPM P-R Int : 182 ms QRS Dur : 132 ms QT Int : 436 ms P-R-T Axes : 058 117 012 degrees QTc Int : 486 ms Sinus rhythm with marked sinus arrhythmia Possible Left atrial enlargement Right bundle branch block Abnormal ECG When compared with ECG of 21-OCT-2012 14:23, No significant change was found Confirmed by Gordon Soto ([id number]) on 10/30/2021 5:39:05 AM Referred By: REFERRED SELF Confirmed By:Gordon Soto
[2021-10-30] MEDS: PANTOprazole 40 MG TAB PO SCH (07:14)
[2021-10-30] MEDS: LOSARTAN POTASSIUM 25 MG TAB PO SCH (07:14)
[2021-10-30] MEDS: ASPIRIN 81 MG ECTAB PO SCH (07:14)
[2021-10-30 07:40] LABS: Basophils # (auto) 0.02 K/uL (0-0.2); Basophils % (auto) 0.3 %; Eosinophils # (auto) 0.24 K/uL (0-0.50); Hematocrit (blood only) 40.4 % (40.1-51.0); Hemoglobin 13.2 g/dl (14.0-18.0); Immature Granulocytes # (auto) 0.03 K/uL (0.00-0.02); Immature Granulocytes % (auto) 0.4 %; Lymphocytes # (auto) 1.39 K/uL (1.2-3.4); Lymphocytes % (auto) 17.4 %; Mean Corpuscular Hemoglobin 30.2 pg (25.0-34.0); Mean Corpuscular Hgb Conc 32.7 g/dL (32.0-36.0); Mean Corpuscular Volume 92.4 fL (80.0-100.0); Mean Platelet Volume 9.9 fL (9.4-12.4); Monocytes # (auto) 0.72 K/uL (0.24-0.82); Neutrophils # (auto) 5.57 K/uL (1.4-6.5); Neutrophils % (auto) 69.9 %; Platelet Count 217 K/uL (130-400); RDW Coefficient of Variation 12.4 % (11.5-14.5); RDW Standard Deviation 42.1 fL (36.4-46.3); Red Blood Count 4.37 M/uL (4.63-6.08); White Blood Count 7.97 K/ul (4.8-10.8)
[2021-10-30 08:04] LABS: Albumin Globulin Ratio 1.3 (0.9-2); Albumin Level 3.3 gm/dl (3.4-5.0); BUN Creatinine Ratio 15.3 (10-20); Bilirubin,Total 0.9 mg/dl (0.2-1.0); Calcium 7.8 mg/dl (8.5-10.1); Creatinine Clr Calc Pharmacy 105.8 ml/min; Est GFR (African American) 106.5 ml/min; Est GFR (Non-African American) 91.9 ml/min; Globulin 2.5 gm/dl (2.5-4.0); Potassium 4.1 mmol/L (3.5-5.1); Total Protein 5.8 gm/dl (6.0-8.3)
[2021-10-30] MEDS: INSULIN ASPART PER UNIT SC SCH ×4 (08:55→21:03)
--- NOTE | 2021-10-30 11:17 | Gastroenterology Progress Note ---
Date of Service October 30, 2021 Assessment & Plan (1) Acute gallstone pancreatitis: Plan: Patient is a 76 years old male admitted for suspected gallstone pancreatitis, cholecystitis. Noted to have choledocholithiasis and CBD dilatation on abdominal imaging studies. He is s/p ERCP 10/29 with choledocholithiasis removal, biliary sphincterotomy. Biliary stent also placed, clinically doing well and LFTs are normal. - CL diet today - Antibiotic coverage for 10 days - Avoid NSAID or ASA for at least 5 days after sphincterotomy - Cholecystectomy per Surgery team - Biliary stent removal in 6-8 weeks (we will arrange appt) - Symptomatic management otherwise - GI to sign off; pls recall prn Admission and Anticipated Discharge Date Admission Date: October 29, 2021 Supervising Physician Co-Signing Physician Notes I have personally seen and examined the patient with JUDD Page. Her note reflects my exam and findings. I agree with her impression and plan. No significant abdominal pain. Merry timing as per surgery service. Yang Singh M.D. Subjective Patient reports that he is feeling well, denies any fevers, chills, nausea or vomiting. Also not having any abdominal pain. Tolerating clear liquids diet. LFTs are normalized now Review of Systems Review of Systems: All systems reviewed & are unremarkable except as noted in HPI & below Physical Exam Constitutional: WD/WN, vitals as above well groomed, cooperative and comfortable Eyes: PERRL, conjunctivae normal, anicteric sclerae ENMT: external ear and nose normal, oropharynx normal Respiratory: normal respiratory effort, lungs clear to auscultation Cardiovascular: RRR, no murmur, no edema Gastrointestinal (Abdomen): normal bowel sounds, soft, nontender, no hepatosplenomegaly Skin: no rashes, warm and dry no jaundice Psychiatric: A+Ox3, euthymic affect Lymphatic: no lymphedema Results & Data ([facility]) Vital Signs (Past 12 Hours) Vital Signs Temp Pulse Resp BP Pulse Ox O2 Del Method 10/30/21 06:43 37.2 C 90 18 117/74 93 Room Air
[2021-10-30] MEDS: cefTRIAXone SODIUM 2,000 MG in DEXTROSE 5% 50 ML IV SCH (12:18)
--- NOTE | 2021-10-30 12:59 | Surgery Progress Note ---
Date of Service October 30, 2021 Assessment & Plan (1) Cholelithiasis: Plan: pt is a 76 year-old male who was admitted to hospital for gallstone pancreatitis, acute cholecystitis, cholelithiasis, IMP: gallstone pancreatitis, acute cholecystitis, cholelithiasis, plan, I recommend to have ERCP first, monitor lipase, possible do laparoscopic cholecystectomy on 10/31/2021 if lipase down, D/P benefits, risks and alternatives of the surgery, pt understood, he agrees with the plan, I answered all questions, will F/U, continue conservative treatment, 10/30/2021, 12:57PM I recommend to do laparoscopic cholecystectomy, possible open or cholangiogram, tomorrow, D/W benefits, risks and alternatives of the surgery, the risks- infection, bleeding injury other organs, incisional hernia, CA, pt understood, he agrees with surgery, he signed informed consent, I answered all questions, NPO after MN Admission and Anticipated Discharge Date Admission Date: October 29, 2021 Supervising Physician Co-Signing Physician Notes I have personally seen and examined the patient with JUDD Page. Her note reflects my exam and findings. I agree with her impression and plan. No significant abdominal pain. Merry timing as per surgery service. Yang Singh M.D. Subjective Patient reports that he is feeling well, denies any fevers, chills, nausea or vomiting. Also not having any abdominal pain. Tolerating clear liquids diet. LFTs are normalized now 10/30/2021 12:55PM, Dr. Sinclair F/U gallstone, S/P ERCP, pt id doing better, no significant abdominal pain, tolerated diet, no fever, Physical Exam Constitutional: WD/WN, vitals as above Eyes: PERRL, conjunctivae normal, anicteric sclerae Neck: trachea midline, no thyromegaly Respiratory: normal respiratory effort, lungs clear to auscultation Cardiovascular: RRR, no murmur, no edema Gastrointestinal (Abdomen): soft, mild tenderness at RUQ, no rebound pain, BS + Musculoskeletal: no cyanosis or clubbing, extremities motor strength 5/5 Neurologic: patellar DTR's 2+ bilat, sensation intact Psychiatric: A+Ox3, euthymic affect Results & Data ([facility]) Vital Signs (Past 12 Hours) Vital Signs Temp Pulse Resp BP Pulse Ox O2 Del Method 10/30/21 06:43 37.2 C 90 18 117/74 93 Room Air Laboratory Results Abnormal lab results 10/29/21 10/29/21 10/29/21 Range/Units 15:24 18:05 20:32 RBC (4.63-6.08) M/uL Hgb (14.0-18.0) g/dl Immature Gran # (Auto) (0.00-0.02) K/uL Glucose (70-99(Fasting)) mg/dl POC Glucose 119 H 156 H 190 H (70-99) mg/dl Calcium (8.5-10.1) mg/dl Total Protein (6.0-8.3) gm/dl Albumin (3.4-5.0) gm/dl 10/30/21 10/30/21 10/30/21 Range/Units 06:59 06:59 07:54 RBC 4.37 L (4.63-6.08) M/uL Hgb 13.2 L (14.0-18.0) g/dl Immature Gran # (Auto) 0.03 H (0.00-0.02) K/uL Glucose 141 H (70-99(Fasting)) mg/dl POC Glucose 144 H (70-99) mg/dl Calcium 7.8 L (8.5-10.1) mg/dl Total Protein 5.8 L (6.0-8.3) gm/dl Albumin 3.3 L (3.4-5.0) gm/dl 10/30/21 Range/Units 11:57 RBC (4.63-6.08) M/uL Hgb (14.0-18.0) g/dl Immature Gran # (Auto) (0.00-0.02) K/uL Glucose (70-99(Fasting)) mg/dl POC Glucose 166 H (70-99) mg/dl Calcium (8.5-10.1) mg/dl Total Protein (6.0-8.3) gm/dl Albumin (3.4-5.0) gm/dl
--- NOTE | 2021-10-30 13:54 | Hospitalist Progress Note ---
Date of Service October 30, 2021 Assessment & Plan (1) Acute gallstone pancreatitis: Plan: 76yo male with a history of T2DM, cholelithiasis, HLD, BPH, arthritis, steatohepatitis, and GERD presents with a few-hour history of abdominal pain, nausea, and vomiting. Gallstone pancreatitis/choledocholithiasis Pain onset after meals prior to admission CTA/P with cholelithiasis, layering gravel like stones present and moderately distended gallbladder US-GB:Gallbladder distention with cholelithiasis. The gallbladder wall is not thickened however does appear to be slightly edematous. Findings are equivocal for acute cholecystitis. Consider correlation with nuclear medicine hepatobiliary scan. 2. The common bile duct measures within the upper limits of normal secondary to the choledocholithiasis seen on the comparison MRCP and CT abdomen and pelvis exams.3. Hepatic steatosis. Coverage for acute choley with Rocephin/Flagyl; patient reports tolerates penicillin but has a listed rash amoxicillin allergy which he is not sure Resolution of pain following ERCP with stone extraction, sphincterotomy, and stent placement. No NSAIDs or aspirin for 5 days. Stent removal at follow-up in 6 to 8 weeks. GI signed off. Appreciate care. Pending cholecystectomy tomorrow Clears today, n.p.o. at midnight Low rate supplemental clears overnight and n.p.o. history of heart failure Daily CMP/BMP DM2 - HbA1c 8.3% (06/2021) - Patient's home regimen held on admission - Continue BSG checks, sliding-scale insulin, hypoglycemic protocol HLD: hold home atorvastatin while NPO HTN: BP well-controlled on admission and in reevaluation, holding home regimen while NPO GERD: holding home regimen while NPO FEN: Clears, n.p.o. at midnight with IV FM supplementation while n.p.o. Code status: DNI DVT ppx: SCDs Consults: Surgery pending Dispo: med/surg (2) Arthritis: (3) Cholelithiasis: (4) Diabetes mellitus type 2, uncontrolled: (5) Gastroesophageal reflux disease: (6) Hypercholesterolemia: (7) Steatohepatitis, nonalcoholic: Admission and Anticipated Discharge Date Admission Date: October 29, 2021 Duyen Degroot seen at the bedside. He reports he has had resolution of his pain, and has noted pain since his stent was placed and stone was extracted. Feels well, aware that he is awaiting cholecystectomy with no other questions or concerns at this time. Tolerated clears this morning without pain. Bowel movement today was brown, no blood or brennen color. Denies chest pain, chest pressure, shortness of breath, difficulty breathing, lightheadedness, dizziness. No questions or concerns, expresses appreciation of care. Review of Systems Review of Systems: All systems reviewed & are unremarkable except as noted in Subjective Physical Exam Physical Exam: General: A&Ox3. NAD. Cooperative. HEENT: Atraumatic, normocephalic. Pulm: CTAB A&P. -wheezes, -rales, -rhonchi. Symmetrical chest rise. No increase in work of breathing. No respiratory distress. Cardiac: RRR. No murmurs. Radial pulses intact and symmetrical. Abdominal: Nontender. Nondistended, soft, no guarding Results & Data Results & Data ([facility]) Vital Signs (Past 12 Hours) Vital Signs Temp Pulse Resp BP Pulse Ox O2 Del Method 10/30/21 06:43 37.2 C 90 18 117/74 93 Room Air PG Care Time/CCT Total # of Minutes Spent Total Time Spent with Patient: Total time spent is greater than 50% in coordination of care (as documented) at patient's floor/unit and/or counseling patient: Coding Level of Care Code 75745 Subseq Hosp Care Lvl 2 Diagnoses Acute gallstone pancreatitis K85.10 Arthritis M19.90 Cholelithiasis K80.20 Diabetes mellitus type 2, uncontrolled E11.65 Gastroesophageal reflux disease K21.9 Hypercholesterolemia E78.00 Steatohepatitis, nonalcoholic K75.81
[2021-10-30] MEDS: ATORVASTATIN 40 MG TAB PO SCH (20:06)
[2021-10-31] MEDS: metroNIDAZOLE 500 MG/100 ML BAG IV SCH ×3 (05:10→21:22)
[2021-10-31] MEDS: INSULIN ASPART PER UNIT SC SCH ×4 (06:14→20:58)
[2021-10-31] MEDS: LOSARTAN POTASSIUM 25 MG TAB PO SCH (07:44)
[2021-10-31] MEDS: ASPIRIN 81 MG ECTAB PO SCH (07:44)
[2021-10-31] MEDS: PANTOprazole 40 MG TAB PO SCH (07:44)
[2021-10-31] MEDS: LACTATED RINGER'S 1,000 ML IV SCH ×2 (07:45→19:54)
[2021-10-31] MEDS ORDERED: fentaNYL citrate 100 MCG/2 ML VIAL ONE (08:02)
[2021-10-31] MEDS ORDERED: DEXAMETHASONE SOD INJ 4 MG/ML VIAL ONE (08:02)
[2021-10-31] MEDS ORDERED: ROCURONIUM BROMIDE 10 MG/ML 5 ML VIAL IV ONE (08:02)
[2021-10-31] MEDS ORDERED: PROPOFOL IV EMULSION 10 MG/ML 20 ML VIAL IV ONE (08:02)
[2021-10-31] MEDS ORDERED: LIDOCAINE 2% 20 MG/ML 5 ML SYR IV ONE (08:02)
[2021-10-31] MEDS ORDERED: ONDANSETRON INJ 2 MG/ML 2 ML VIAL ONE (08:02)
--- NOTE | 2021-10-31 08:49 | History & Physical Bridge Note ---
Date of Service October 31, 2021 History & Physical Bridge Note I have examined the patient, reviewed the History & Physical and in the interval since the performance of the History & Physical I have noted the following changes of clinical significance: no changes noted Supervising Physician Co-Signing Physician Notes I have personally seen and examined the patient with JUDD Page. Her note reflects my exam and findings. I agree with her impression and plan. No significant abdominal pain. Merry timing as per surgery service. Yang Singh M.D.
[2021-10-31] MEDS ORDERED: ceFAZolin 2,000 MG/15 ML IV PUSH IV ONE (09:25)
[2021-10-31] MEDS ORDERED: ceFAZolin 2000MG 2,000 MG/15 ML SYR IV ONE (09:30)
[2021-10-31] MEDS ORDERED: BACITRACIN OINT 15 GM TUBE ONE (09:49)
[2021-10-31] MEDS ORDERED: LIDOCAINE 1% LOCAL 20 ML VIAL ONE (09:49)
[2021-10-31] MEDS ORDERED: BUPIVACAINE 0.5 % 5 MG/1 ML MPF 30ML VIAL ONE (09:49)
--- NOTE | 2021-10-31 09:53 | Anesthesiology Consultation ---
Date of Service October 31, 2021 Assessment & Plan (1) Encounter for pre-operative examination: Chart Review Chart Review: Acceptable Risk for Surgery History Surgery Operation Date: 10/29/21 07:00 Proposed Procedures p Endoscopic Retrograde Cholangiopancreato - Shakira Crockett DO Operation Date: 10/31/21 09:30 Proposed Procedures p Laparoscopic Cholecystectomy - Soren Sinclair MD Height/Weight Height: 5 ft 10 in Weight: 98.2 kg Allergies Allergy/AdvReac Type Severity Reaction Status Date / Time amoxicillin Allergy Intermediate Rash Verified 10/28/21 22:37 aspartame AdvReac Intermediate HEADACHES Verified 10/28/21 22:37 lisinopril AdvReac Intermediate NAUSEA Verified 10/28/21 22:37 Medications Home Medications Medication Instructions Recorded Confirmed Last Taken cholecalciferol (vitamin D3) 10 400 units PO QPM 10/09/18 10/28/21 10/28/21 mcg (400 unit) capsule cinnamon bark 500 mg capsule 1,000 mg PO QPM 10/27/18 10/28/21 10/28/21 (Cinnamon) multivit,Ca,min-iron 8 mg-folic 1 tab PO QAM 10/27/18 10/28/21 10/28/21 acid 200 mcg-lycopene 600 mcg tablet (Centrum Ultra Men's) naproxen sodium 220 mg tablet 220 mg PO BID PRN pain 10/27/18 10/28/21 Unknown fexofenadine 180 mg tablet 180 mg PO QPM 11/22/19 10/28/21 10/28/21 atorvastatin 80 mg tablet 80 mg PO HS #90 tabs 01/03/21 10/28/21 10/28/21 metformin 500 mg tablet 1,000 mg PO BID #360 tabs 02/05/21 10/28/21 10/28/21 omeprazole 40 mg capsule,delayed 40 mg PO QAM #90 caps 02/05/21 10/28/21 10/28/21 release glipizide 5 mg tablet, extended 10 mg PO BID 07/04/21 10/28/21 10/28/21 release 24 hr blood sugar diagnostic #50 ea 09/05/21 09/27/21 Unknown losartan 25 mg tablet 25 mg PO QAM #90 tabs 09/18/21 10/28/21 10/28/21 aspirin 81 mg tablet,delayed 81 mg PO DAILY 10/28/21 10/28/21 10/28/21 release tacrolimus 0.1 % topical ointment 1 applic topical BID PRN Skin 10/28/21 10/28/21 Unknown Irritation Active Medications Generic Name Dose Route Start Last Admin Trade Name Jennifer PRN Reason Stop Dose Admin Aspirin 81 mg 10/29/21 09:00 10/31/21 07:44 Aspirin 81 Mg Ectab PO 11/28/21 08:59 Not Given DAILY GEOVANNY Atorvastatin Calcium 80 mg 10/29/21 21:00 10/30/21 20:06 Atorvastatin 40 Mg Tab PO 11/28/21 20:59 80 mg HS GEOVANNY Administration Lactated Ringer's 1,000 mls @ 80 mls/hr 10/29/21 10:30 10/31/21 07:45 Lr IV 11/28/21 10:29 80 mls/hr .[id number] GEOVANNY Administration Ceftriaxone Sodium 2,000 mg/ 70 mls @ 100 mls/hr 10/29/21 13:00 10/30/21 13:08 Dextrose IV 11/08/21 12:59 Infused Q24H GEOVANNY Infusion Protocol Metronidazole 500 mg in 100 mls @ 100 mls/hr 10/29/21 14:00 10/31/21 06:14 Flagyl IV 11/08/21 13:59 Infused Q8H GEOVANNY Infusion Insulin Aspart 0 units 10/29/21 21:00 10/31/21 06:14 Insulin Aspart Per Unit SC 11/28/21 20:59 Not Given ACHS GEOVANNY Losartan Potassium 25 mg 10/29/21 09:00 10/31/21 07:44 Losartan Potassium 25 Mg Tab PO 11/28/21 08:59 25 mg QAM GEOVANNY Administration Pantoprazole Sodium 40 mg 10/29/21 09:00 10/31/21 07:44 Pantoprazole 40 Mg Tab PO 11/28/21 08:59 40 mg QAM GEOVANNY Administration NPO Date Last Intake of Fluids: 10/30/21 Time Last Intake of Fluids: 18:00 Date Last Intake of Solids: 10/30/21 Time Last Intake of Solids: 18:00 Past Medical History Medical History Gastroesophageal reflux disease History of colon polyps History of Lyme disease HTN (hypertension) Hypercholesterolemia Osteoarthritis Steatohepatitis, nonalcoholic Type 2 diabetes mellitus NIDDM Past Family History Family History Father Coronary heart disease Myocardial infarction Mother Coronary heart disease Myocardial infarction Brother Coronary heart disease Myocardial infarction Son Type 1 diabetes mellitus Diabetic gastroparesis Unknown Diabetes Other No family history of adverse response to anesthesia Denies family history of Ovarian cancer Prostate cancer Breast cancer Colorectal cancer Past Surgical History Surgical History History of Achilles tendon repair Right History of ankle surgery Left History of colonoscopy History of foot surgery Left History of surgery removal of hardware from left foot - reports hardware broke and metal still present in foot History of tonsillectomy History of wisdom tooth extraction Social History Smoking Status: Never smoker Hx Alcohol Use: No alcohol intake frequency: holidays/special occasions only Hx Substance Use: No substance use type: does not use Physical Exam Vital Signs Last Vital Signs Temp 36.8 C 10/31/21 08:55 Pulse 92 H 10/31/21 08:55 Resp 18 10/31/21 08:55 BP 158/91 H 10/31/21 08:55 Pulse Ox 95 10/31/21 08:55 O2 Del Method 10/31/21 08:55 O2 Flow Rate 5 10/29/21 15:30 Testing Laboratory Results 10/30/21 06:59 10/30/21 06:59 Hemoglobin A1c 8.5 % (4.5-5.6) H 10/29/21 07:35 Urine Color Yellow 10/29/21 06:35 Urine Appearance Clear (Clear) 10/29/21 06:35 Urine pH 5.0 (4.5-7.5) 10/29/21 06:35 Ur Specific Hellier > 1.045 (1.000-1.030) H 10/29/21 06:35 Urine Protein Negative (Negative) 10/29/21 06:35 Urine Glucose (UA) Negative (Negative) 10/29/21 06:35 Urine Ketones Negative (Negative) 10/29/21 06:35 Urine Nitrite Negative (Negative) 10/29/21 06:35 Ur Leukocyte Esterase Negative (Negative) 10/29/21 06:35 10/31/21 06:11 POC Glucose 136 H Electrocardiogram Date: 10/28/21 Findings: + NSR @ (75) and + RBBB
--- NOTE | 2021-10-31 10:18 | Hospitalist Progress Note ---
Date of Service October 31, 2021 Assessment & Plan (1) Acute gallstone pancreatitis: Plan: 76yo male with a history of T2DM, cholelithiasis, HLD, BPH, arthritis, steatohepatitis, and GERD presents with a few-hour history of abdominal pain, nausea, and vomiting. Gallstone pancreatitis/choledocholithiasis ERCP 10/29 stone extraction sphincterotomy and stent follow-up for stent removal in 6 to 8 weeks no NSAIDs for 5 days Cholecystectomy 10/31 CTA/P with cholelithiasis, layering gravel like stones present and moderately distended gallbladder US-GB:Gallbladder distention with cholelithiasis. The gallbladder wall is not thickened however does appear to be slightly edematous. Findings are equivocal for acute cholecystitis. Consider correlation with nuclear medicine hepatobiliary scan. 2. The common bile duct measures within the upper limits of normal secondary to the choledocholithiasis seen on the comparison MRCP and CT abdomen and pelvis exams.3. Hepatic steatosis . Continues on metronidazole and ceftriaxone DM2 - HbA1c 8.3% (06/2021) - Patient's home regimen held on admission - Continue BSG checks, sliding-scale insulin, hypoglycemic protocol HLD: hold home atorvastatin while NPO HTN: BP well-controlled on admission and in reevaluation, holding home regimen while NPO GERD: holding home regimen while NPO Code status: DNI DVT ppx: SCDs (2) Arthritis: (3) Cholelithiasis: (4) Diabetes mellitus type 2, uncontrolled: (5) Gastroesophageal reflux disease: (6) Hypercholesterolemia: (7) Steatohepatitis, nonalcoholic: Admission and Anticipated Discharge Date Admission Date: October 29, 2021 Subjective Patient was seen postoperatively for cholecystectomy he was in some discomfort with mild nausea. Review of Systems Review of Systems: Mild distress and fatigue no headache, no visual changes no speech or swallowing issues no chest pain, pressure or palpitations no shortness of breath, cough or wheezes Postoperative abdominal pain, with some nausea but no vomiting no flatus yet no dysuria, hematuria or frequency no focal joint pain or swelling no back pain, CVA tenderness or radicular pain no bruising, bleeding or rashes no focal signs of weakness or numbness or altered sensation no complaints of anxiety or depression.. Physical Exam Physical Exam: The patient appeared well nourished and normally developed. Vital signs as documented. Head exam is normocephalic atraumatic Neck is without JVD, thyromegaly, or carotid bruits. Lungs are clear to auscultation, no focal loss of breath sounds Cardiac exam, Rhythm is regular.. No murmurs, rubs or gallops. Abdominal exam reveals absent bowel sounds, soft tenderness right upper quadrant Extremities are nonedematous and both pedal pulses are present Neurologic exam is alert and oriented, no focal loss of strength or sensation Skin is with operative changes Psychologically is without concerns for anxiety or depression.. Results & Data Results & Data ([facility]) Vital Signs (Past 12 Hours) Vital Signs Temp Pulse Pulse Resp BP Pulse Ox O2 Del Method 10/31/21 08:55 98.2 F 92 H 18 158/91 H 95 Room Air 10/31/21 08:04 97.5 F L 88 16 144/87 H 92 Room Air 10/31/21 06:33 99.1 F 88 20 164/84 H 93 Room Air 10/30/21 22:38 99.0 F 89 20 138/80 92 Room Air PG Care Time/CCT Total # of Minutes Spent Total Time Spent with Patient: Total time spent is greater than 50% in coordination of care (as documented) at patient's floor/unit and/or counseling patient: Coding Level of Care Code 81186 Subseq Hosp Care Lvl 2 Diagnoses Acute gallstone pancreatitis K85.10 Arthritis M19.90 Cholelithiasis K80.20 Diabetes mellitus type 2, uncontrolled E11.65 Gastroesophageal reflux disease K21.9 Hypercholesterolemia E78.00 Steatohepatitis, nonalcoholic K75.81
[2021-10-31] MEDS ORDERED: SURGICEL ABSORB HEMOSTAT 2IN X 14IN TOP ONE (11:33)
[2021-10-31] MEDS ORDERED: KETOROLAC 30 MG/ML VIAL IV PRN (11:36)
[2021-10-31] MEDS ORDERED: ONDANSETRON INJ 2 MG/ML 2 ML VIAL IV PRN ×2 (11:36→14:04)
[2021-10-31] MEDS ORDERED: ATROPINE SULFATE 0.1 MG/ML 10ML SYR IV PRN (11:36)
[2021-10-31] MEDS ORDERED: PROMETHAZINE HCL 6.25 MG in SODIUM CHLORIDE 0.9% 50 ML IV PRN (11:36)
[2021-10-31] MEDS ORDERED: LABETALOL HCL IV 5 MG/ML 20ML IV PRN (11:36)
[2021-10-31] MEDS ORDERED: FLOSEAL HEMOSTATIC MATRIX 10ML TOP ONE (11:44)
[2021-10-31] MEDS ORDERED: GLYCOPYRROLATE 0.2 MG/ML VIAL ONE (11:49)
[2021-10-31] MEDS ORDERED: NEOSTIGMINE METHYLSULFATE 1 MG/ML 10ML VIAL ONE (11:49)
--- NOTE | 2021-10-31 12:06 | Post Operative Brief Note ---
Immediate Post Op Note v1 Date of Surgery October 31, 2021 Pre & Post Diagnosis Operation Date: 10/29/21 07:00 Pre-Op Diagnosis: Gallstone Pancreatitis Post-Op Diagnosis: Gallstone Pancreatitis Operation Date: 10/31/21 09:30 Pre-Op Diagnosis: Acute Cholecystitis, cholelithiasis Post-Op Diagnosis: Acute Cholecystitis, cholelithiasis I identified the patient and participated in the time-out.: Yes Procedure Operation Date: 10/29/21 07:00 Actual Procedures p Endoscopic retrograde Cholangiopancreatography (Not Applicable) - Shakira Crockett DO Operation Date: 10/31/21 09:30 Actual Procedures p Laparoscopic Cholecystectomy - Soren Sinclair MD Surgeon Soren Sinclair MD [employer] semiconductor equipment technician Estimated Blood Loss 30 Findings Consistent with Post-Op Diagnosis significant inflammation on gallbladder wall, acute cholecystitis Fluids 1200ml Specimens gallbladder Anesthesia Type General Complications none Disposition Accompanied Patient To Recovery: Yes
[2021-10-31] MEDS: fentaNYL citrate 100 MCG/2 ML VIAL IV PRN ×4 (12:20→12:36)
--- NOTE | 2021-10-31 13:21 | Anesthesiology Progress Note ---
Date of Service October 31, 2021 Anesthesia Post Procedure Vital Signs Vital Signs: Temp Pulse Pulse Resp BP Pulse Ox O2 Del Method 10/31/21 13:15 89 18 152/96 H 94 Nasal Cannula 10/31/21 13:00 85 19 158/87 H 93 Nasal Cannula 10/31/21 12:50 36.7 C 88 20 151/92 H 95 Nasal Cannula 10/31/21 12:40 85 20 157/95 H 96 Oxymask 10/31/21 12:30 85 20 148/97 H 99 Oxymask 10/31/21 12:20 91 H 17 143/86 H 96 Oxymask 10/31/21 12:14 36.2 C L 103 H 16 156/86 H 95 Oxymask 10/31/21 08:55 36.8 C 92 H 18 158/91 H 95 Room Air 10/31/21 08:04 36.4 C L 88 16 144/87 H 92 Room Air 10/31/21 06:33 37.3 C 88 20 164/84 H 93 Room Air 10/30/21 22:38 37.2 C 89 20 138/80 92 Room Air 10/30/21 19:36 37.2 C 94 H 18 137/83 96 Room Air 10/30/21 16:21 36.6 C 89 14 133/82 93 Room Air O2 Flow Rate 10/31/21 13:15 2 10/31/21 13:00 2 10/31/21 12:50 2 10/31/21 12:40 7 10/31/21 12:30 7 10/31/21 12:20 7 10/31/21 12:14 7 10/31/21 08:55 10/31/21 08:04 10/31/21 06:33 10/30/21 22:38 10/30/21 19:36 10/30/21 16:21 Pain Intensity Abdomen: Pain Intensity: 4 Transfer of Care Handoff Completed per policy Notes Mental Status: alert / awake / arousable Patient Amnestic to Procedure: Yes Nausea / Vomiting: adequately controlled Pain: adequately controlled Airway Patency, RR, SpO2: stable & adequate BP & HR: stable & adequate Hydration State: stable & adequate Anesthetic Complications: no major complications apparent
[2021-10-31] MEDS ORDERED: TACROLIMUS 0.1% TOP PRN (13:36)
[2021-10-31] MEDS: MoRPHine SULFATE 2 MG/ML CARP IV PRN ×3 (13:49→19:52)
[2021-10-31] MEDS: cefTRIAXone SODIUM 2,000 MG in DEXTROSE 5% 50 ML IV SCH (13:49)
[2021-10-31] MEDS ORDERED: NAPROXEN 250 MG TAB PO PRN (14:02)
[2021-10-31] MEDS ORDERED: PROMETHAZINE HCL 12.5 MG in SODIUM CHLORIDE 0.9% 50 ML IV PRN (14:04)
[2021-10-31] MEDS ORDERED: Nursing to Pharmacy Communication SCH (14:30)
[2021-10-31 15:11] LABS: Basophils # (auto) 0.04 K/uL (0-0.2); Basophils % (auto) 0.3 %; Eosinophils # (auto) 0.06 K/uL (0-0.50); Eosinophils % (auto) 0.5 %; Hematocrit (blood only) 43.6 % (40.1-51.0); Immature Granulocytes # (auto) 0.04 K/uL (0.00-0.02); Immature Granulocytes % (auto) 0.3 %; Lymphocytes # (auto) 0.67 K/uL (1.2-3.4); Lymphocytes % (auto) 5.6 %; Mean Corpuscular Hemoglobin 29.4 pg (25.0-34.0); Mean Corpuscular Hgb Conc 32.1 g/dL (32.0-36.0); Mean Corpuscular Volume 91.4 fL (80.0-100.0); Mean Platelet Volume 9.8 fL (9.4-12.4); Monocytes # (auto) 0.45 K/uL (0.24-0.82); Monocytes % (auto) 3.8 %; Neutrophils # (auto) 10.72 K/uL (1.4-6.5); Neutrophils % (auto) 89.5 %; Platelet Count 233 K/uL (130-400); RDW Coefficient of Variation 12.4 % (11.5-14.5); RDW Standard Deviation 41.2 fL (36.4-46.3); Red Blood Count 4.77 M/uL (4.63-6.08); White Blood Count 11.98 K/ul (4.8-10.8)
[2021-10-31 15:44] LABS: Albumin Globulin Ratio 1.2 (0.9-2); Albumin Level 3.6 gm/dl (3.4-5.0); BUN Creatinine Ratio 8.6 (10-20); Bilirubin,Total 0.6 mg/dl (0.2-1.0); Calcium 8.2 mg/dl (8.5-10.1); Est GFR (African American) 101.5 ml/min; Est GFR (Non-African American) 87.6 ml/min; Potassium 4.1 mmol/L (3.5-5.1); Total Protein 6.6 gm/dl (6.0-8.3)
[2021-10-31] MEDS ORDERED: glipiZIDE ER 2.5 MG TABCR PO SCH (17:00)
[2021-10-31] MEDS ORDERED: metFORMIN HCL 500 MG TAB PO SCH (17:00)
--- NOTE | 2021-10-31 18:34 | Operative Report (OR) ---
DATE OF PROCEDURE: 10/29/2021 PREOPERATIVE DIAGNOSES: Acute cholecystitis, cholelithiasis. POSTOPERATIVE DIAGNOSES: Acute cholecystitis, cholelithiasis. OPERATION: Laparoscopic cholecystectomy. SURGEON: Soren Sinclair MD. ANESTHESIA: General. ESTIMATED BLOOD LOSS: About 30 mL. FINDINGS: Significant inflammation on the gallbladder wall, gallbladder wall with edema and inflamma tion, diagnosis of acute cholecystitis with cholelithiasis. COMPLICATIONS: None. INDICATIONS FOR THE PROCEDURE: This is a 76-year-old gentleman who was admitted to the hospital for acute cholecystitis, cholelithiasis. I recommended to do laparoscopic cholecystectomy, possible open , possible cholangiogram. I did talk to the patient about the benefit, risk, alternate procedure. I indicated the risks may include, but not limited to such as bleeding, infection, injury to other org ans, incisional hernia, myocardial infarction, DVT, stroke, and even . The patient understands that. He signed informed consent and I answered all questions. DETAILS OF PROCEDURE: After we identified the patient and verified the procedure, we brought the pat ient to the OR, put the patient in the supine position on the OR table. The patient received SCD on bilateral legs to prevent DVT. Also, patient received 2 grams of Ancef IV for prophylactic antibioti c. The patient received general anesthesia without difficulty. The abdomen was prepped and draped i n routine sterile fashion. After timeout, I injected the local anesthesia by using 1% lidocaine mixe d with 0.5% Marcaine just above the umbilicus, then I made a small incision just above umbilicus, ope danyelle fascia, opened peritoneum. Under direct vision, put a Magaly trocar in, connected to CO2 to crea te pneumoperitoneum, flow rate at 6 liters per minute, pressure not more than 14 mmHg. Once we got a nice pneumoperitoneum, we put a camera in, looked around the abdomen. Normal finding o n the liver; however, the gallbladder showed significant inflammation and edema on the gallbladder wa ll, confirming the diagnosis of acute cholecystitis. Once we confirmed the diagnosis, I put another two 5 mm trocars in the right upper quadrant, one 11 trocar in the epigastric incision. Then, we use d the grasper to hold the base of gallbladder, put in the direction to the diaphragm, another grasper to hold the pouch of gallbladder, put a lateral to explore the triangle of Calot. The cystic duct was identified and mobilized. I put two 10 mm metal clips on the proximal cystic ford t, one on the distal cystic duct, then used a scissor for transection of cystic duct; rechecked, no b ile leak, no active bleeding. The cystic artery was identified and mobilized. I put two 5 mm metal clips on the proximal cystic artery, one on the distal cystic artery, then used a scissor for transec tion of cystic artery; rechecked, no active bleeding. Then, we used the Bovie to take down gallbladd er from the liver bed; rechecked, no active bleeding, no bile leak; however, due to the significant i nflammation on the gallbladder wall and liver bed, there was some oozing. At this moment, I put 2 Nix rgicels to hold the liver bed and rechecked, no active bleeding. Also, I used Floseal injection arou nd the liver bed. Rechecked, no active bleeding. Then, we removed gallbladder through the catch bag . Then, we reinserted the Magaly trocar in to create pneumoperitoneum, again looked around the abdomen, no active bleeding from the liver bed and we removed all trocars under direct vision. No active ble eding from the trocar site. Pneumoperitoneum was released, then I closed the umbilical incision fasc ial layer by using 0 Vicryl kwaozl-mm-sctod x2, closed subcutaneous layer by using 2-0 Vicryl interru ptedly, closed skin by using 4-0 Vicryl continuous running, closed the epigastric incision fascial la josefa by using 2-0 Vicryl interruptedly, closed subcutaneous layer by using 2-0 Vicryl interruptedly, c losed skin by using 4-0 Vicryl interruptedly, closed another two 5 mm trocar site of skin only by usi ng 4-0 Vicryl. Then, we put the dressing on. The patient tolerated the procedure well. All instrument, needle and sponge counts were correct x2 a t the end of the case. The patient was transferred to recovery room in stable condition. The specim en was sent to pathology. After the procedure, I did talk to the patient about the OR finding and th e procedure we did, he understands. I answered all questions. Job ID: [id number]
[2021-10-31] MEDS: FEXOFENADINE HCL 180 MG TAB PO SCH (21:22)
[2021-10-31] MEDS: CHOLECALCIFEROL 400 UNITS 10 MCG TAB PO SCH (21:22)
[2021-10-31] MEDS: ATORVASTATIN 40 MG TAB PO SCH (21:22)
--- NOTE | 2021-11-01 05:32 | Hospitalist Progress Note ---
Date of Service November 01, 2021 Assessment & Plan (1) Acute gallstone pancreatitis: Plan: 76yo male with a history of T2DM, cholelithiasis, HLD, BPH, arthritis, steatohepatitis, and GERD presents with a few-hour history of abdominal pain, nausea, and vomiting. Gallstone pancreatitis/choledocholithiasis ERCP 10/29 stone extraction sphincterotomy and stent follow-up for stent removal in 6 to 8 weeks no NSAIDs for 5 days Cholecystectomy 10/31 CTA/P with cholelithiasis, layering gravel like stones present and moderately distended gallbladder US-GB:Gallbladder distention with cholelithiasis. The gallbladder wall is not thickened however does appear to be slightly edematous. Findings are equivocal for acute cholecystitis. Consider correlation with nuclear medicine hepatobiliary scan. 2. The common bile duct measures within the upper limits of normal secondary to the choledocholithiasis seen on the comparison MRCP and CT abdomen and pelvis exams.3. Hepatic steatosis . Continues on metronidazole and ceftriaxone complete one week DM2 - HbA1c 8.3% (06/2021) - Patient's home regimen held on admission - Continue BSG checks, sliding-scale insulin, hypoglycemic protocol HLD: hold home atorvastatin while NPO HTN: BP well-controlled on admission and in reevaluation, holding home regimen while NPO GERD: holding home regimen while NPO Code status: DNI DVT ppx: SCDs (2) Arthritis: (3) Cholelithiasis: (4) Diabetes mellitus type 2, uncontrolled: (5) Gastroesophageal reflux disease: (6) Hypercholesterolemia: (7) Steatohepatitis, nonalcoholic: Admission and Anticipated Discharge Date Admission Date: October 29, 2021 Subjective pt still with abdominal pain, no flatus no nausea in recovery fro bridgett cystectomy Review of Systems Review of Systems: Mild distress and fatigue no headache, no visual changes no speech or swallowing issues no chest pain, pressure or palpitations no shortness of breath, cough or wheezes Postoperative abdominal pain, with some nausea but no vomiting no flatus yet no dysuria, hematuria or frequency no focal joint pain or swelling no back pain, CVA tenderness or radicular pain no bruising, bleeding or rashes no focal signs of weakness or numbness or altered sensation no complaints of anxiety or depression.. Physical Exam Physical Exam: The patient appeared well nourished and normally developed. Vital signs as documented. Head exam is normocephalic atraumatic Neck is without JVD, thyromegaly, or carotid bruits. Lungs are clear to auscultation, no focal loss of breath sounds Cardiac exam, Rhythm is regular.. No murmurs, rubs or gallops. Abdominal exam reveals absent bowel sounds, soft tenderness right upper quadrant Extremities are nonedematous and both pedal pulses are present Neurologic exam is alert and oriented, no focal loss of strength or sensation Skin is with operative changes Psychologically is without concerns for anxiety or depression.. Results & Data Results & Data ([facility]) Vital Signs (Past 12 Hours) Vital Signs Temp Pulse Pulse Resp BP Pulse Ox O2 Del Method 11/01/21 03:40 99.0 F 100 H 18 131/71 91 Room Air 10/31/21 22:46 99.9 F H 114 H 20 131/79 90 Room Air 10/31/21 19:46 100.0 F H 116 H 22 130/74 91 Room Air PG Care Time/CCT Total # of Minutes Spent Total Time Spent with Patient: Total time spent is greater than 50% in coordination of care (as documented) at patient's floor/unit and/or counseling patient: Coding Level of Care Code 87084 Subseq Hosp Care Lvl 2 Diagnoses Acute gallstone pancreatitis K85.10 Arthritis M19.90 Cholelithiasis K80.20 Diabetes mellitus type 2, uncontrolled E11.65 Gastroesophageal reflux disease K21.9 Hypercholesterolemia E78.00 Steatohepatitis, nonalcoholic K75.81
[2021-11-01] MEDS: metroNIDAZOLE 500 MG/100 ML BAG IV SCH ×3 (06:03→22:18)
[2021-11-01 07:53] LABS: Hematocrit (blood only) 40.7 % (40.1-51.0); Hemoglobin 13.6 g/dl (14.0-18.0); Mean Corpuscular Hemoglobin 30.1 pg (25.0-34.0); Mean Corpuscular Hgb Conc 33.4 g/dL (32.0-36.0); Mean Platelet Volume 9.6 fL (9.4-12.4); Platelet Count 244 K/uL (130-400); RDW Coefficient of Variation 12.5 % (11.5-14.5); RDW Standard Deviation 41.4 fL (36.4-46.3); Red Blood Count 4.52 M/uL (4.63-6.08); White Blood Count 10.97 K/ul (4.8-10.8)
[2021-11-01 08:13] LABS: Albumin Globulin Ratio 1.2 (0.9-2); Albumin Level 3.3 gm/dl (3.4-5.0); BUN Creatinine Ratio 11.4 (10-20); Calcium 8.1 mg/dl (8.5-10.1); Creatinine Clr Calc Pharmacy 108.8 ml/min; Est GFR (African American) 107.8 ml/min; Globulin 2.7 gm/dl (2.5-4.0); Potassium 3.9 mmol/L (3.5-5.1)
[2021-11-01] MEDS: PANTOprazole 40 MG TAB PO SCH (08:31)
[2021-11-01] MEDS: LOSARTAN POTASSIUM 25 MG TAB PO SCH (08:31)
[2021-11-01] MEDS: ASPIRIN 81 MG ECTAB PO SCH (08:31)
[2021-11-01] MEDS: INSULIN ASPART PER UNIT SC SCH ×4 (09:09→21:00)
[2021-11-01] MEDS: MULTIVITAMIN TAB PO SCH (10:20)
[2021-11-01] MEDS: LACTATED RINGER'S 1,000 ML IV SCH ×2 (10:20→23:22)
--- NOTE | 2021-11-01 12:01 | Surgery Progress Note ---
Date of Service November 01, 2021 Assessment & Plan (1) Cholelithiasis: Plan: pt is a 76 year-old male who was admitted to hospital for gallstone pancreatitis, acute cholecystitis, cholelithiasis, IMP: gallstone pancreatitis, acute cholecystitis, cholelithiasis, plan, I recommend to have ERCP first, monitor lipase, possible do laparoscopic cholecystectomy on 10/31/2021 if lipase down, D/P benefits, risks and alternatives of the surgery, pt understood, he agrees with the plan, I answered all questions, will F/U, continue conservative treatment, 10/30/2021, 12:57PM I recommend to do laparoscopic cholecystectomy, possible open or cholangiogram, tomorrow, D/W benefits, risks and alternatives of the surgery, the risks- infection, bleeding injury other organs, incisional hernia, [place], pt understood, he agrees with surgery, he signed informed consent, I answered all questions, NPO after MN 11/01/2021 11:58AM Dr. Sinclair F/U S/P lap bridgett POD 1 pt is doing fine, tolerated diet, no fever, pt can be discharged home today, po cipro + flagyl x 5 days, the post-op care instruction was given, F/U me 2 weeks, , Thanks, Admission and Anticipated Discharge Date Admission Date: October 29, 2021 Supervising Physician Co-Signing Physician Notes I have personally seen and examined the patient with JUDD Page. Her note reflects my exam and findings. I agree with her impression and plan. No significant abdominal pain. Bridgett timing as per surgery service. Yang Singh M.D. Subjective pt still with abdominal pain, no flatus no nausea in recovery fro cholecystectomy 11/01/2021 1:56AM Dr. Sinclair F/U S/P laparoscopic cholecystectomy, POD 1 pt is doing fine, tolerated diet, no fever, Physical Exam Constitutional: WD/WN, vitals as above Eyes: PERRL, conjunctivae normal, anicteric sclerae Neck: trachea midline, no thyromegaly Respiratory: normal respiratory effort, lungs clear to auscultation Cardiovascular: RRR, no murmur, no edema Gastrointestinal (Abdomen): soft, mild tenderness at incision site, no rebound pain, no distend, all incisions intact, no redness, BS + Musculoskeletal: no cyanosis or clubbing, extremities motor strength 5/5 Neurologic: patellar DTR's 2+ bilat, sensation intact Psychiatric: A+Ox3, euthymic affect Results & Data ([facility]) Vital Signs (Past 12 Hours) Vital Signs Temp Pulse Resp BP Pulse Ox O2 Del Method 11/01/21 10:40 36.7 C 92 H 18 106/20 L 94 Room Air 11/01/21 06:27 37.1 C 78 20 109/63 92 Room Air 11/01/21 03:40 37.2 C 100 H 18 131/71 91 Room Air Laboratory Results Abnormal lab results 10/31/21 10/31/21 10/31/21 Range/Units 12:18 14:48 14:48 WBC 11.98 H (4.8-10.8) K/ul RBC (4.63-6.08) M/uL Hgb (14.0-18.0) g/dl Neut # (Auto) 10.72 H (1.4-6.5) K/uL Lymph # (Auto) 0.67 L (1.2-3.4) K/uL Immature Gran # (Auto) 0.04 H (0.00-0.02) K/uL BUN/Creatinine Ratio 8.6 L (10-20) Glucose 192 H (70-99(Fasting)) mg/dl POC Glucose 149 H (70-99) mg/dl Calcium 8.2 L (8.5-10.1) mg/dl Albumin (3.4-5.0) gm/dl 10/31/21 10/31/21 11/01/21 Range/Units 17:11 20:45 07:22 WBC 10.97 H (4.8-10.8) K/ul RBC 4.52 L (4.63-6.08) M/uL Hgb 13.6 L (14.0-18.0) g/dl Neut # (Auto) (1.4-6.5) K/uL Lymph # (Auto) (1.2-3.4) K/uL Immature Gran # (Auto) (0.00-0.02) K/uL BUN/Creatinine Ratio (10-20) Glucose (70-99(Fasting)) mg/dl POC Glucose 188 H 161 H (70-99) mg/dl Calcium (8.5-10.1) mg/dl Albumin (3.4-5.0) gm/dl 11/01/21 11/01/21 Range/Units 07:22 08:04 WBC (4.8-10.8) K/ul RBC (4.63-6.08) M/uL Hgb (14.0-18.0) g/dl Neut # (Auto) (1.4-6.5) K/uL Lymph # (Auto) (1.2-3.4) K/uL Immature Gran # (Auto) (0.00-0.02) K/uL BUN/Creatinine Ratio (10-20) Glucose 155 H (70-99(Fasting)) mg/dl POC Glucose 149 H (70-99) mg/dl Calcium 8.1 L (8.5-10.1) mg/dl Albumin 3.3 L (3.4-5.0) gm/dl
[2021-11-01] MEDS: cefTRIAXone SODIUM 2,000 MG in DEXTROSE 5% 50 ML IV SCH (12:47)
[2021-11-01] MEDS: ATORVASTATIN 40 MG TAB PO SCH (22:12)
[2021-11-01] MEDS: CHOLECALCIFEROL 400 UNITS 10 MCG TAB PO SCH (22:12)
[2021-11-01] MEDS: FEXOFENADINE HCL 180 MG TAB PO SCH (22:13)
[2021-11-02] MEDS: metroNIDAZOLE 500 MG/100 ML BAG IV SCH (06:16)
[2021-11-02] MEDS: PANTOprazole 40 MG TAB PO SCH (09:09)
[2021-11-02] MEDS: LOSARTAN POTASSIUM 25 MG TAB PO SCH (09:09)
[2021-11-02] MEDS: MULTIVITAMIN TAB PO SCH (09:10)
[2021-11-02] MEDS: ASPIRIN 81 MG ECTAB PO SCH (09:10)
[2021-11-02] MEDS: INSULIN ASPART PER UNIT SC SCH ×2 (09:12→13:00)
--- NOTE | 2021-11-02 19:16 | Discharge Summary ---
Date of Service November 02, 2021 Admission HPI Per Admitting Provider 76yo male with a history of T2DM, cholelithiasis, HLD, BPH, arthritis, steatohepatitis, and GERD presents with a few-hour history of abdominal pain, nausea, and vomiting. Symptoms began shortly after patient started breakfast. Patient notes his pain is primarily RUQ pain which is constant and dull. Has never had pain like this before. Became nauseous shortly after the pain began; had one episode of vomiting which was nonbloody and nonbilious. Has a history of gallstones but has never had any abdominal surgeries before. Patient denies fever, chills, headache, vision changes, CP, palpitations, SOB, edema, dysuria, hematochezia, melena, lightheadedness, dizziness, numbness, tingling, weakness, or other symptoms. Denies recent illness and recent travel. Upon arrival, vitals were stable; BP not elevated or low, no tachycardia, no tachypnea, afebrile, spO2 adequate on room air. Initial labs were notable for mild leukocytosis (12.9), minimally elevated AST (40), minimally elevated alk phos (108), and significantly elevated lipase (5212). In the ED, patient received NSS 1L bolus (x1), morphine IV 8mg in total, and toradol IV 15mg (x1). Surrogate decision-maker in case of an emergency: Madison Nuñez (cell: [phone]) Principal Diagnosis acute cholecystitis, s/p ERCP and cholecystectomy Discharge Exam The patient appeared well nourished and normally developed. Vital signs as documented. Head exam is normocephalic atraumatic Neck is without JVD, thyromegaly, or carotid bruits. Lungs are clear to auscultation, no focal loss of breath sounds Cardiac exam, Rhythm is regular.. No murmurs, rubs or gallops. Abdominal exam reveals absent bowel sounds, soft tenderness right upper quadrant Extremities are nonedematous and both pedal pulses are present Neurologic exam is alert and oriented, no focal loss of strength or sensation Skin is with operative changes Psychologically is without concerns for anxiety or depression.. Discharge Data Allergies Allergy/AdvReac Type Severity Reaction Status Date / Time amoxicillin Allergy Intermediate Rash Verified 10/28/21 22:37 aspartame AdvReac Intermediate HEADACHES Verified 10/28/21 22:37 lisinopril AdvReac Intermediate NAUSEA Verified 10/28/21 22:37 Consultations 10/29/21 00:03 ED Decision to Admit Stat 10/29/21 07:00 Consult Gastroenterology Routine 10/29/21 10:15 Consult General Surgery Routine Procedures Performed Operation Date: 10/29/21 07:00 Actual Procedures p Endoscopic retrograde Cholangiopancreatography (Not Applicable) - Shakira Crockett DO Operation Date: 10/31/21 09:30 Actual Procedures p Laparoscopic Cholecystectomy - Soren Sinclair MD Ordered Studies 10/28/21 22:21 CT abd pelvis IV con only Urgent 10/28/21 23:54 US gallbladder Urgent 10/29/21 00:38 MR MRCP Routine 10/29/21 14:30 FL ERCP biliary ductal Routine Hospital Course (1) Acute gallstone pancreatitis: 76yo male with a history of T2DM, cholelithiasis, HLD, BPH, arthritis, steatohepatitis, and GERD presents with a few-hour history of abdominal pain, nausea, and vomiting. Gallstone pancreatitis/choledocholithiasis ERCP 10/29 stone extraction sphincterotomy and stent follow-up for stent removal in 6 to 8 weeks no NSAIDs for 5 days Cholecystectomy 10/31 CTA/P with cholelithiasis, layering gravel like stones present and moderately distended gallbladder US-GB:Gallbladder distention with cholelithiasis. The gallbladder wall is not thickened however does appear to be slightly edematous. Findings are equivocal for acute cholecystitis. Consider correlation with nuclear medicine hepatobiliary scan. 2. The common bile duct measures within the upper limits of normal secondary to the choledocholithiasis seen on the comparison MRCP and CT abdomen and pelvis exams.3. Hepatic steatosis . Continues on metronidazole and cipro complete 5 additonal days DM2 - HbA1c 8.3% (06/2021) - Patient's home regimen continues HLD: hold home atorvastatin while NPO HTN: BP well-controlled on admission and in reevaluation, holding home regimen while NPO GERD: holding home regimen while NPO Code status: DNI (2) Arthritis: (3) Cholelithiasis: (4) Diabetes mellitus type 2, uncontrolled: (5) Gastroesophageal reflux disease: (6) Hypercholesterolemia: (7) Steatohepatitis, nonalcoholic: Total Time Total Time Spent Total Time Spent (In Minutes): It required greater than 30 minutes to prepare this patient for discharge Discharge Plan Discharge Items Patient Disposition: Home - Self-Care Reason For Visit: ABDOMINAL PAIN, GALLSTONE PANCREATITIS Discharge Diagnosis: S/P laparoscopic cholecystectomy Condition on Discharge: Fair Activity: As commented below Lifting: No more than 10 pounds Lifting Comment: for 4 weeks, Bathing: May shower/bathe in 3 days Sexual Activity: After two weeks Exercise/Sports: Rest today Driving/Machine Use: no drivng while taking pain medicine, Non-emergency contact: Surgeon Call non-emergency contact if: you have any medication questions, your symptoms worsen, your pain is not controlled, your pain is worsening and your pain is unusual for you Follow-up/Referrals: Yaneth Reid CRNP [Primary Care Provider] - () Soren Sinclair MD [Physician] - 11/13/21 2:15 pm (Follow up Dr. Sinclair 2 weeks, Agree-I have documented within the medical record.) Diet: Regular Addtl Attending Provider Instructions: keep the dressing on for 4 days, Pending Studies at Discharge: Yes Studies:: gallbladder pathology report Stand-Alone Forms: My [facility] [employer], Smoking Cessation Medications and DC Order Prescriptions: New ciprofloxacin HCl [Cipro] 500 mg tablet 500 mg PO BID Qty: 10 0RF metronidazole 500 mg tablet 500 mg PO TID Qty: 15 0RF Continued atorvastatin 80 mg tablet 80 mg PO HS Qty: 90 3RF omeprazole 40 mg capsule,delayed release(DR/EC) 40 mg PO QAM Qty: 90 3RF metformin 500 mg tablet 1,000 mg PO BID Qty: 360 3RF (DME) blood sugar diagnostic Strip See Dose Instructions .ROUTE .MEDSUPPLY Qty: 50 11RF Rx Instructions: Use to test blood sugar once daily losartan 25 mg tablet 25 mg PO QAM Qty: 90 3RF cholecalciferol (vitamin D3) 400 unit capsule 400 units PO QPM cinnamon bark [Cinnamon] 500 mg capsule 1,000 mg PO QPM Centrum Ultra Men's 8 mg iron- 200 mcg-600 mcg tablet 1 tab PO QAM naproxen sodium 220 mg tablet 220 mg PO BID PRN (Reason: pain) glipizide 5 mg tablet extended release 24 hr 10 mg PO BID Rx Instructions: as directed with meals fexofenadine 180 mg Tablet 180 mg PO QPM aspirin 81 mg Tablet,Delayed Release (Dr/Ec) 81 mg PO DAILY tacrolimus 0.1 % ointment 1 applic topical BID PRN (Reason: Skin Irritation) Rx Instructions: Apply to areas of the hand twice daily as needed. Discharge Orders: Discharge Order (Routine); Ordered 11/02/21 Ordered By: Tin Salgado/Other Patient Handouts: Managing Type 2 Diabetes, After Gallbladder Surgery, Diabetes: Meal Planning Admission Data Admit Date/Time: 10/29/21 00:38 Attending Provider: Tin Thomas Admit Provider: Mynor Posey Primary Care Provider: Yaneth Reid Other Providers: Arnoldo Young ; Darren North ; Soren Sinclair Other Interventions: Discharge Summary Assessment (RN) Last Done: 11/02/21 13:51 Coding Level of Care Code D/C DAY MANAGEMENT >30 MINS Diagnoses Acute gallstone pancreatitis K85.10 Arthritis M19.90 Cholelithiasis K80.20 Diabetes mellitus type 2, uncontrolled E11.65 Gastroesophageal reflux disease K21.9 Hypercholesterolemia E78.00 Steatohepatitis, nonalcoholic K75.81
== END 2021-11-02 14:42 | disposition home or self-care (01) | DRG 417 ==
LOC: ED 21:51 → 3W 10-29 00:38 → SUATTDRO 10-29 00:38 → 3W 10-29 01:54
DX: Z20.822 Contact with and (suspected) exposure to COVID-19; Z79.84 Long term (current) use of oral hypoglycemic drugs; Z88.8 Allergy status to other drugs, medicaments and biological substances; Z79.82 Long term (current) use of aspirin; I10 Essential (primary) hypertension; K80.62 Calculus of gallbladder and bile duct with acute cholecystitis without obstruction; Z83.3 Family history of diabetes mellitus; Z88.0 Allergy status to penicillin; Z79.899 Other long term (current) drug therapy; E78.00 Pure hypercholesterolemia, unspecified; K21.9 Gastro-esophageal reflux disease without esophagitis; E11.9 Type 2 diabetes mellitus without complications; M19.90 Unspecified osteoarthritis, unspecified site; Z91.02 Food additives allergy status; K85.10 Biliary acute pancreatitis without necrosis or infection; Z82.49 Family history of ischemic heart disease and other diseases of the circulatory system; N40.0 Benign prostatic hyperplasia without lower urinary tract symptoms

== ENCOUNTER 2023-07-04 19:08 | Observation (INO) ==
[2023-07-04 20:22] LABS: Basophils # (auto) 0.05 K/uL (0.00-0.20); Basophils % (auto) 0.5 %; Eosinophils # (auto) 0.02 K/uL (0.00-0.50); Eosinophils % (auto) 0.2 %; Hematocrit (blood only) 43.9 % (42.0-52.0); Hemoglobin 14.8 g/dl (14.0-18.0); Immature Granulocytes # (auto) 0.02 K/uL (0.01-0.20); Immature Granulocytes % (auto) 0.2 %; Lymphocytes % (auto) 16.9 %; Mean Corpuscular Hemoglobin 29.8 pg (25.0-34.0); Mean Corpuscular Hgb Conc 33.7 g/dL (32.0-36.0); Mean Corpuscular Volume 88.5 fL (80.0-100.0); Monocytes # (auto) 0.32 K/uL (0.11-0.59); Monocytes % (auto) 3.2 %; Neutrophils # (auto) 7.93 K/uL (1.40-6.50); Platelet Count 326 K/uL (130-400); RDW Coefficient of Variation 12.5 % (11.5-14.5); RDW Standard Deviation 40.3 fL (36.4-46.3); Red Blood Count 4.96 M/uL (4.70-6.10); White Blood Count 10.04 K/ul (4.8-10.8)
[2023-07-04 20:26] LABS: Albumin Globulin Ratio 1.2 (0.9-2); Albumin Level 4.3 gm/dl (3.4-5.0); BUN Creatinine Ratio 17.1 (10-20); Bilirubin,Total 0.8 mg/dl (0.2-1.0); Calcium 9.8 mg/dl (8.6-10.3); Creatinine Clr Calc Pharmacy 87.2 ml/min; Est GFR (African American) 100.3 ml/min; Est GFR (Non-African American) 86.5 ml/min; Globulin 3.6 gm/dl (2.5-4.0); Magnesium 1.7 mg/dl (1.7-2.4); Potassium 4.5 mmol/L (3.5-5.1); Total Protein 7.9 gm/dl (6.0-8.3)
[2023-07-04 20:36] LABS: Prothrombin Time 10.9 Seconds (9.0-12.0)
[2023-07-04 20:41] LABS: Troponin I High Sensitivity 52.1 pg/ml (0-20)
[2023-07-04] MEDS: PROCHLORPERAZINE 1 ML IV ONE (20:50)
[2023-07-04] MEDS: diphenhydrAMINE 50 MG/ML VIAL IV STA (20:50)
[2023-07-04] MEDS: SODIUM CHLORIDE 0.9% 2,000 ML IV ONE (20:50)
[2023-07-04] MEDS: MAGNESIUM SULFATE / D5W 1 GM/100 ML BAG IV STA (20:54)
--- NOTE | 2023-07-04 20:57 | Emergency Department Note ---
Impression & Plan Headache, migraine, Non-ST elevation HI (NSTEMI) ED Provider Note HISTORY OF PRESENT ILLNESS: Patient is a 77-year-old male presenting with a migraine headache. Patient reports he has had a constant migraine headache for the last 3 days. Reports associated nausea. Reports an aura of sparkly spots in his vision. He states that he is very sensitive to light and sounds at this time. Reports has been taking Tylenol with little relief in his symptoms. He reports he has a history of migraine headaches, but has not had a migraine for over a decade. Denies any recent falls or head injuries. Denies any chiropractic manipulation of his neck. Denies any numbness or tingling or weakness in extremities or any slurred speech. He last took Tylenol earlier this evening. He is currently feeling nauseous. Denies any chest pain or shortness of breath. Denies any abdominal pain. Denies any recent fevers. Denies any dysuria or hematuria. ROS: as above PHYSICAL EXAM: Constitutional: Patient appears in no acute distress. HENT: Head: Normocephalic and atraumatic. Eyes: EOMI, PERRL Mouth/Throat: Mucous membranes moist. Neck: Trachea midline. Neck supple. Cardiovascular: RRR, No murmurs, rubs or gallops. Intact distal pulses. Pulmonary/Chest: No respiratory distress. Breath sounds clear and equal bilaterally. No wheezes or rales. Abdominal: Abdomen soft, no tenderness, rebound or guarding. Musculoskeletal: No edema, tenderness or deformity noted. Skin: Warm and dry. No rash, erythema, pallor or cyanosis Psychiatric: Appropriate mood and affect for situation. Neurological: Alert and keenly responsive. CN II-XII grossly intact, moving all extremities equally and fully. MDM: - Vitals signs showed hypertension and tachycardia - History obtained via patient. History as above. - Chronic conditions affecting care: DM-2; HLD; HTN - Differential diagnoses include, but are not limited to: primary headache; viral syndrome; CVA; intracranial hemorrhage; electrolyte abnormality; dysrhythmia; dehydration - Order placed for continuous cardiac monitoring. At this time, monitor showed rate of 94 bpm with normal sinus rhythm, per my interpretation. - External medical records reviewed. Wellness visit dated 06/12/2023 was reviewed. Patient followed in their clinic for his annual wellness examination. - EKG interpreted by myself showed normal sinus rhythm. Rate 97 bpm. QT 410. No acute ischemic changes. Noted to have a right bundle branch block - Laboratory workup interpreted by myself showed normal WBC; stable electrolytes; elevated anion gap (12); elevated troponin (52.1) - CT head wo contrast negative for acute intracranial pathology - Patient given 2L NS, 25 mg IV benadryl, 5 mg IV compazine and 1g IV magnesium for headache. On reassessment, patient reports headache has improved slightly. He was sleeping and noted to drop his saturations down to 87%. He has no history of sleep apnea. He was placed on 2 L nasal cannula with improvement in his saturations. - Repeat troponin trending down, but still elevated. - Discussion was had with rn case manager hospice about patient's case and need for admission - Hospitalist consulted for admission - Patient admitted to [facility] for further evaluation and management. ASSESSMENT AND PLAN: Diagnosis: migraine headache; NSTEMI Plan: admit Past Med/Surg History Medical History Cardiac murmur BPH (benign prostatic hyperplasia) Choledocholithiasis History of COVID-19 Osteoarthritis HTN (hypertension) Gastroesophageal reflux disease History of Lyme disease Hypercholesterolemia Steatohepatitis, nonalcoholic Type 2 diabetes mellitus Surgical History History of cataract surgery Hx of left cataract extraction History of ERCP History of laparoscopic cholecystectomy History of surgery History of foot surgery History of Achilles tendon repair History of tonsillectomy History of wisdom tooth extraction History of ankle surgery History of colonoscopy Family History Father Coronary heart disease Myocardial infarction Mother Coronary heart disease Myocardial infarction Brother Coronary heart disease Myocardial infarction Son Type 1 diabetes mellitus Diabetic gastroparesis Unknown Diabetes Other No family history of adverse response to anesthesia Denies family history of Ovarian cancer Prostate cancer Breast cancer Colorectal cancer Social History Smoking Status: Never smoker Second Hand Exposure: No; Do You Dip or Chew Tobacco: No; Hx Alcohol Use: Yes Alcohol Intake Frequency Comment: rarely Hx Substance Use: No Preferred Language: Urdu Communication Ability: Effective Visual Impairment: No Limitations Hearing Ability: Normal Consulting Services Associate Required: No Beliefs That Will Affect Care: None marital status: Current Living Situation: Spouse current occupational status: retired 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 Age How many Children do You have: 1 Feels Safe at Home: Yes Childhood Exposure to Second-Hand Smoke: Yes Diet: regular caffeine: Yes Dental Care, Regularly: Yes Physical Activity Frequency: Daily Seatbelt Use: always Sunscreen Use: Yes Assistive Devices: Glasses Allergies Allergies Allergy/AdvReac Type Severity Reaction Status Date / Time amoxicillin Allergy Intermediate Rash Verified 07/03/23 09:01 aspartame AdvReac Intermediate HEADACHES Verified 07/03/23 09:01 lisinopril AdvReac Intermediate NAUSEA Verified 07/03/23 09:01 Home Meds Home Medications Medication Instructions Recorded Confirmed cholecalciferol (vitamin D3) 10 400 units PO QPM 10/09/18 07/04/23 mcg (400 unit) capsule cinnamon bark 500 mg capsule 1,000 mg PO QPM 10/27/18 07/04/23 (Cinnamon) multivit,Ca,min-iron 8 mg-folic 1 tab PO QAM 10/27/18 07/04/23 acid 200 mcg-lycopene 600 mcg tablet (Centrum Ultra Men's) naproxen sodium 220 mg tablet 220 mg PO BID PRN pain 10/27/18 07/04/23 fexofenadine 180 mg tablet 180 mg PO QPM 11/22/19 07/04/23 aspirin 81 mg tablet,delayed 81 mg PO QPM 10/28/21 07/04/23 release tacrolimus 0.1 % topical ointment 1 applic topical BID PRN Skin 10/28/21 07/04/23 Irritation Previous Rx's Medication Instructions Recorded blood sugar diagnostic #50 ea 09/03/22 atorvastatin 80 mg tablet 80 mg PO HS #90 tabs 06/23/23 glipizide 5 mg tablet, extended 10 mg (2 x 5 mg) PO BID #180 tabs 06/23/23 release 24 hr losartan 25 mg tablet 25 mg PO QAM #90 tabs 06/23/23 metformin 500 mg tablet 1,000 mg (2 x 500 mg) PO BID #360 06/23/23 tabs omeprazole 40 mg capsule,delayed 40 mg PO QAM #90 caps 06/23/23 release blood-glucose sensor (Dexcom G7 #1 ea 07/03/23 Sensor device) empagliflozin 10 mg tablet 10 mg PO QAM #90 tabs 07/03/23 (Jardiance) Results & Data (ED) Vital Signs Vital Signs - 24 hr 07/04/23 19:09 07/04/23 19:48 07/04/23 20:06 Temperature 36.5 C Temperature Source Temporal Artery Scan Pulse Rate 102 H 93 H Pulse Rate [Finger] 81 Pulse Rate from SpO2 Sensor Respiratory Rate 17 16 Respiratory Effort / Characteristics Non-Labored Respiratory Depth Normal Respiratory Pattern Regular Blood Pressure 155/92 H Blood Pressure [Left Arm] 143/94 H Blood Pressure Mean 113 Blood Pressure Mean [Left Arm] 110 Blood Pressure Position [Left Arm] Lying Pulse Oximetry 98 97 Oxygen Delivery Method Room Air Room Air Oxygen Flow Rate Sepsis Recent Fever Within 48 Hours No Sepsis New/Unexplained Change in Mental Status No Sepsis Action Taken by Nursing No Action Required 07/04/23 20:07 07/04/23 20:30 07/04/23 20:30 Temperature Temperature Source Pulse Rate 93 H 91 H Pulse Rate [Finger] Pulse Rate from SpO2 Sensor 93 H 91 H Respiratory Rate 19 19 Respiratory Effort / Characteristics Respiratory Depth Respiratory Pattern Blood Pressure 140/89 142/94 H Blood Pressure [Left Arm] Blood Pressure Mean 106 111 Blood Pressure Mean [Left Arm] Blood Pressure Position [Left Arm] Pulse Oximetry 98 95 Oxygen Delivery Method Room Air Oxygen Flow Rate Sepsis Recent Fever Within 48 Hours Sepsis New/Unexplained Change in Mental Status Sepsis Action Taken by Nursing 07/04/23 21:00 07/04/23 21:00 07/04/23 21:19 Temperature Temperature Source Pulse Rate 95 H Pulse Rate [Finger] Pulse Rate from SpO2 Sensor 95 H Respiratory Rate 17 Respiratory Effort / Characteristics Respiratory Depth Respiratory Pattern Blood Pressure 129/94 Blood Pressure [Left Arm] Blood Pressure Mean 99 Blood Pressure Mean [Left Arm] Blood Pressure Position [Left Arm] Pulse Oximetry 90 93 Oxygen Delivery Method Nasal Cannula Oxygen Flow Rate 2 Sepsis Recent Fever Within 48 Hours Sepsis New/Unexplained Change in Mental Status Sepsis Action Taken by Nursing 07/04/23 22:00 07/04/23 22:00 Temperature Temperature Source Pulse Rate 92 H Pulse Rate [Finger] Pulse Rate from SpO2 Sensor Respiratory Rate 14 Respiratory Effort / Characteristics Respiratory Depth Respiratory Pattern Blood Pressure 126/71 Blood Pressure [Left Arm] Blood Pressure Mean 89 Blood Pressure Mean [Left Arm] Blood Pressure Position [Left Arm] Pulse Oximetry 97 Oxygen Delivery Method Nasal Cannula Oxygen Flow Rate 2 Sepsis Recent Fever Within 48 Hours Sepsis New/Unexplained Change in Mental Status Sepsis Action Taken by Nursing Laboratory Data 07/04/23 19:35 07/04/23 19:35 Lab Results 07/04/23 07/04/23 Range/Units 19:35 21:39 WBC 10.04 (4.8-10.8) K/ul RBC 4.96 (4.70-6.10) M/uL Hgb 14.8 (14.0-18.0) g/dl Hct 43.9 (42.0-52.0) % MCV 88.5 (80.0-100.0) fL MCH 29.8 (25.0-34.0) pg MCHC 33.7 (32.0-36.0) g/dL RDW Std Deviation 40.3 (36.4-46.3) fL RDW Coeff of Jay 12.5 (11.5-14.5) % Plt Count 326 (130-400) K/uL MPV 10.0 (9.4-12.4) fL Immature Gran % (Auto) 0.2 % Neut % (Auto) 79.0 % Lymph % (Auto) 16.9 % [place] % (Auto) 3.2 % Eos % (Auto) 0.2 % Baso % (Auto) 0.5 % Neut # (Auto) 7.93 H (1.40-6.50) K/uL Lymph # (Auto) 1.70 (1.20-3.40) K/uL [place] # (Auto) 0.32 (0.11-0.59) K/uL Eos # (Auto) 0.02 (0.00-0.50) K/uL Baso # (Auto) 0.05 (0.00-0.20) K/uL Immature Gran # (Auto) 0.02 (0.01-0.20) K/uL PT 10.9 (9.0-12.0) Seconds INR 1.0 (0.9-1.1) Sodium 139 (136-145) mmol/L Potassium 4.5 (3.5-5.1) mmol/L Chloride 101 (98-107) mmol/L Carbon Dioxide 26 (21-32) mmol/L Anion Gap 12 H (3-11) BUN 14 (6-23) mg/dl Creatinine 0.82 (0.6-1.4) mg/dl Est Cr Clr Drug Dosing 87.2 ml/min Est GFR ( Amer) 100.3 ml/min Est GFR (Non-Af Amer) 86.5 ml/min BUN/Creatinine Ratio 17.1 (10-20) Glucose 210 H (70-99(Fasting)) mg/dl Calcium 9.8 (8.6-10.3) mg/dl Magnesium 1.7 (1.7-2.4) mg/dl Total Bilirubin 0.8 (0.2-1.0) mg/dl AST 19 (13-39) U/L ALT 22 (7-52) U/L Alkaline Phosphatase 90 (34-104) U/L Troponin I High Sens 52.1 H* 43.7 H (0-20) pg/ml Total Protein 7.9 (6.0-8.3) gm/dl Albumin 4.3 (3.4-5.0) gm/dl Globulin 3.6 (2.5-4.0) gm/dl Albumin/Globulin Ratio 1.2 (0.9-2) Administered Medications Discontinued Medications Diphenhydramine HCl (Diphenhydramine 50 Mg/Ml Vial) 25 mg IV NOW STA Stop: 07/04/23 20:39 Last Admin: 07/04/23 20:50 Dose: 25 mg Documented By: HAYES Sodium Chloride (Nss) 2,000 mls @ 999 mls/hr IV .Q2H1M ONE Stop: 07/04/23 22:38 Last Infusion: 07/04/23 22:51 Dose: Infused Documented By: Admin: 07/04/23 20:50 Dose: 999 mls/hr Documented By: HAYES Prochlorperazine (Compazine) 1 mls @ 1 mls/min IV ONE ONE Stop: 07/04/23 20:39 Last Admin: 07/04/23 20:50 Dose: 1 mls/min Documented By: HAYES Magnesium Sulfate/Dextrose (Magnesium Sulfate / D5w) 1 gm in 100 mls @ 100 mls/hr IV NOW STA Stop: 07/04/23 21:37 Last Infusion: 07/04/23 21:57 Dose: Infused Documented By: Admin: 07/04/23 20:54 Dose: 100 mls/hr Documented By: HAYES Imaging Data Radiologist's Impression: Head CT 07/04/23 19:19 Exam(s): CT HEAD Without Contrast EXAM: CT Head Without Intravenous Contrast CLINICAL HISTORY: Reason for exam: headache. TECHNIQUE: Axial computed tomography images of the head/brain without intravenous contrast. CTDI is 35.37 mGy and DLP is 624.41 mGy-cm. Automated exposure control was utilized for the study. A dose lowering technique was utilized adhering to the principles of ALARA. COMPARISON: No relevant prior studies available. FINDINGS: Brain: Cortical cerebral volume loss. Patchy white matter hypodensities in keeping with chronic small vessel ischemic disease. [place]-white matter differentiation maintained. No acute intracranial hemorrhage. No mass-effect or midline shift. Ventricles: Unremarkable. No hydrocephalus. Bones/joints: Unremarkable. No acute fracture. Soft tissues: Unremarkable. Vasculature: Intracranial atherosclerosis. 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 Sinuses: Unremarkable as visualized. No acute sinusitis. Mastoid air cells: Unremarkable as visualized. No mastoid effusion. Orbits: Bilateral lens replacements. IMPRESSION: 1. No acute intracranial findings. 2. 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 Electronically signed by: Flory Moon M.D. 07/04/23 20:54 PM Discharge Plan Visit Data Chief Complaint: Headache Stated Complaint: MIGRAINE,NAUSEA ED Provider: Mary Hurtado Discharge Problem: Headache, migraine, Non-ST elevation HI (NSTEMI) Forms Stand Alone Forms: [facility] [employer] Prescriptions Prescriptions: No Action (DME) blood sugar diagnostic Strip See Dose Instructions .ROUTE .MEDSUPPLY Qty: 50 11RF Rx Instructions: Use to test blood sugar once daily glipizide 5 mg tablet extended release 24hr 10 mg PO BID Qty: 180 3RF Rx Instructions: as directed with meals losartan 25 mg tablet 25 mg PO QAM Qty: 90 3RF omeprazole 40 mg capsule,delayed release(DR/EC) 40 mg PO QAM Qty: 90 3RF metformin 500 mg tablet 1,000 mg PO BID Qty: 360 3RF atorvastatin 80 mg tablet 80 mg PO HS Qty: 90 3RF Jardiance 10 mg tablet 10 mg PO QAM Qty: 90 3RF (DME) Dexcom G7 Sensor Device See Rx Instructions .Route Qty: 1 3RF Rx Instructions: Continuous Glucose Monitor cholecalciferol (vitamin D3) 400 unit capsule 400 units PO QPM cinnamon bark [Cinnamon] 500 mg capsule 1,000 mg PO QPM Centrum Ultra Men's 8 mg iron- 200 mcg-600 mcg tablet 1 tab PO QAM naproxen sodium 220 mg tablet 220 mg PO BID PRN (Reason: pain) fexofenadine 180 mg Tablet 180 mg PO QPM aspirin 81 mg Tablet,Delayed Release (Dr/Ec) 81 mg PO QPM tacrolimus 0.1 % ointment 1 applic topical BID PRN (Reason: Skin Irritation) Rx Instructions: Apply to areas of the hand twice daily as needed. Referrals Referrals: Rupesh Sparrow DO [Primary Care Provider] -
--- NOTE | 2023-07-05 00:53 | History & Physical Report ---
Date of Service July 05, 2023 Assessment & Plan (1) Elevated troponin: Plan: Unclear etiology. Patient denies chest pain. 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 -Continue Metformin -Continue Jardiance -BSG qAC/qHS History of Present Illness Chief Complaint: migraine Primary Care Provider: Rupesh Sparrow DO Zane Nuñez is a 77yo male with history of DM, HTN, HLP presenting with complaint of migraine. Headache ongoing since 07/02/23 - he typically can resolve his migraines by sleeping but this MCADAMS persisted. Pain is frontal, 9/10 in severity. He had nausea and vomiting as well. Headache has since resolved after treatment in the ER with Benadryl, Magnesium and Phenergan. Patient had a troponin ordered which was found to be elevated. He denies chest pain, palpitations, SOB, decreased exercises tolerance or other cardiac complaints. No prior history of CAD or arrhythmia. He had a stress test appx 5 years ago which was negative. Patient reports he is active and exercises without difficulty. No chest pain or shortness of breath with exertion. Allergies Allergy/AdvReac Type Severity Reaction Status Date / Time amoxicillin Allergy Intermediate Rash Verified 07/03/23 09:01 aspartame AdvReac Intermediate HEADACHES Verified 07/03/23 09:01 lisinopril AdvReac Intermediate NAUSEA Verified 07/03/23 09:01 Home Medications Medication Instructions Recorded Confirmed Type cholecalciferol (vitamin D3) 10 400 units PO QPM 10/09/18 07/04/23 History mcg (400 unit) capsule cinnamon bark 500 mg capsule 1,000 mg PO QPM 10/27/18 07/04/23 History (Cinnamon) multivit,Ca,min-iron 8 mg-folic 1 tab PO QAM 10/27/18 07/04/23 History acid 200 mcg-lycopene 600 mcg tablet (Centrum Ultra Men's) naproxen sodium 220 mg tablet 220 mg PO BID PRN pain 10/27/18 07/04/23 History fexofenadine 180 mg tablet 180 mg PO QPM 11/22/19 07/04/23 History aspirin 81 mg tablet,delayed 81 mg PO QPM 10/28/21 07/04/23 History release tacrolimus 0.1 % topical ointment 1 applic topical BID PRN Skin 10/28/21 07/04/23 History Irritation blood sugar diagnostic #50 ea 09/03/22 07/03/23 Rx atorvastatin 80 mg tablet 80 mg PO HS #90 tabs 06/23/23 07/04/23 Rx glipizide 5 mg tablet, extended 10 mg (2 x 5 mg) PO BID #180 tabs 06/23/23 07/04/23 Rx release 24 hr losartan 25 mg tablet 25 mg PO QAM #90 tabs 06/23/23 07/04/23 Rx metformin 500 mg tablet 1,000 mg (2 x 500 mg) PO BID #360 06/23/23 07/04/23 Rx tabs omeprazole 40 mg capsule,delayed 40 mg PO QAM #90 caps 06/23/23 07/04/23 Rx release blood-glucose sensor (Dexcom G7 #1 ea 07/03/23 07/03/23 Rx Sensor device) empagliflozin 10 mg tablet 10 mg PO QAM #90 tabs 07/03/23 07/04/23 Rx (Jardiance) Past Med/Surg History Medical History Cardiac murmur BPH (benign prostatic hyperplasia) Choledocholithiasis History of COVID-19 08/2021 > sinus congestion, rhinorrhea > resolved Osteoarthritis HTN (hypertension) Gastroesophageal reflux disease History of Lyme disease Hypercholesterolemia Steatohepatitis, nonalcoholic Type 2 diabetes mellitus NIDDM Surgical History History of cataract surgery 2022, B/L done by Dr. Zhao Hx of left cataract extraction History of ERCP History of laparoscopic cholecystectomy History of surgery removal of hardware from left foot - reports hardware broke and metal still present in foot History of foot surgery Done 04/19/22, 1. Left foot first metatarsophalangeal joint arthrodesis with plate and screws. 2. Jimenez osteotomy of the second and third metatarsals with screw fixation. 3. DuVries arthroplasties of the second, third and fourth toes. 4. Flexor tenotomies of the second, third and fourth toes. 5. Proximal interphalangeal joint capsulotomies with capsular releases of the second, third and fourth toes. 6. Hardware removal, deep bone, third metatarsal. History of Achilles tendon repair Right History of tonsillectomy History of wisdom tooth extraction History of ankle surgery Left History of colonoscopy Family History Father Coronary heart disease Myocardial infarction Mother Coronary heart disease Myocardial infarction Brother Coronary heart disease Myocardial infarction Son Type 1 diabetes mellitus Diabetic gastroparesis Unknown Diabetes Other No family history of adverse response to anesthesia Denies family history of Ovarian cancer Prostate cancer Breast cancer Colorectal cancer Social History Smoking Status: Never smoker Second Hand Exposure: No; Do You Dip or Chew Tobacco: No; Hx Alcohol Use: Yes Alcohol Intake Frequency Comment: rarely Hx Substance Use: No Preferred Language: Bulgarian Communication Ability: Effective Visual Impairment: No Limitations Hearing Ability: Normal Perl Developer Required: No Beliefs That Will Affect Care: None marital status: Current Living Situation: Spouse current occupational status: retired 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 How many Children do You have: 1 Other Information That Helps Us Care for You: No Feels Safe at Home: Yes Safety Concerns: Feels Safe At This Time Childhood Exposure to Second-Hand Smoke: Yes Diet: regular caffeine: Yes Dental Care, Regularly: Yes Physical Activity Frequency: Daily Seatbelt Use: always Sunscreen Use: Yes Assistive Devices: Glasses Review of Systems Review of Systems: All systems reviewed & are unremarkable except as noted in HPI & below Physical Exam Physical Exam: General: patient resting comfortably, NAD, non-toxic in appearance, AA&O x 4 Skin: warm, dry, intact, no rashes or lesions HEENT: NC/AT, PERRL, EOMI, anicteric sclera, conjunctiva without injection, external ear normal to inspection and nontender, nares patent, moist mucus membranes, dentition intact, no oropharyngeal lesions, neck supple, trachea midline, no LAD, no thyromegaly, no JVD Heart: +S1/S2, regular, no m/r/g Lungs: equal air entry bilaterally, no rales/rhonchi/wheezes Abd: +BS, soft, NT/ND, no masses/organomegaly/ascites Ext: warm, 2+ pulses in UE/LE bilaterally, no clubbing/cyanosis or edema Neuro: nonfocal, patient AA&O x 4, speech intact, no facial droop, moving all extremities on command with equal strength 5/5 Results & Data Results & Data Vital Signs (Past 12 Hours) Vital Signs Temp Pulse Pulse Resp BP BP Pulse Ox 07/05/23 00:00 117/73 07/05/23 00:00 92 H 96 07/04/23 23:30 93 H 97 07/04/23 23:30 125/66 07/04/23 23:00 92 H 16 96 07/04/23 23:00 136/74 07/04/23 22:31 96 H 20 96 07/04/23 22:31 122/71 07/04/23 22:30 94 H 11 L 97 07/04/23 22:00 126/71 07/04/23 22:00 92 H 14 97 07/04/23 21:19 93 07/04/23 21:00 95 H 17 90 07/04/23 21:00 129/94 07/04/23 20:30 91 H 19 95 07/04/23 20:30 142/94 H 07/04/23 20:07 93 H 19 140/89 98 07/04/23 20:06 93 H 07/04/23 19:48 81 16 143/94 H 97 07/04/23 19:09 36.5 C 102 H 17 155/92 H 98 O2 Del Method O2 Flow Rate 07/05/23 00:00 07/05/23 00:00 07/04/23 23:30 07/04/23 23:30 07/04/23 23:00 07/04/23 23:00 07/04/23 22:31 07/04/23 22:31 07/04/23 22:30 07/04/23 22:00 07/04/23 22:00 Nasal Cannula 2 07/04/23 21:19 Nasal Cannula 2 07/04/23 21:00 07/04/23 21:00 07/04/23 20:30 07/04/23 20:30 07/04/23 20:07 Room Air 07/04/23 20:06 07/04/23 19:48 Room Air 07/04/23 19:09 Room Air Laboratory Results Laboratory Results WBC 10.04 K/ul (4.8-10.8) 07/04/23 19: RBC 4.96 M/uL (4.70-6.10) 07/04/23 19:35 Hgb 14.8 g/dl (14.0-18.0) 07/04/23 19:35 Hct 43.9 % (42.0-52.0) 07/04/23 19: MCV 88.5 fL (80.0-100.0) 07/04/23 19: MCH 29.8 pg (25.0-34.0) 07/04/23 19: MCHC 33.7 g/dL (32.0-36.0) 07/04/23: RDW Std Deviation 40.3 fL (36.4-46.3) 07/04/23: RDW Coeff of Jay 12.5 % (11.5-14.5) 07/04/23 19: Plt Count 326 K/uL (130-400) 07/04/23: MPV 10.0 fL (9.4-12.4) 07/04/23 19:35 Immature Gran % (Auto) 0.2 % 07/04/23 19: Neut % (Auto) 79.0 % 07/04/23 19:35 Lymph % (Auto) 16.9 % 07/04/23 19:35 [place] % (Auto) 3.2 % 07/04/23 19:35 Eos % (Auto) 0.2 % 07/04/23:35 Baso % (Auto) 0.5 % 07/04/23: Neut # (Auto) 7.93 K/uL (1.40-6.50) H 07/04/23 19:35 Lymph # (Auto) 1.70 K/uL (1.20-3.40) 07/04/23 19:35 [place] # (Auto) 0.32 K/uL (0.11-0.59) 07/04/23 19:35 Eos # (Auto) 0.02 K/uL (0.00-0.50) 07/04/23 19:35 Baso # (Auto) 0.05 K/uL (0.00-0.20) 07/04/23: Immature Gran # (Auto) 0.02 K/uL (0.01-0.20) 07/04/23 19:35 PT 10.9 Seconds (9.0-12.0) 07/04/23 19:35 INR 1.0 (0.9-1.1) 07/04/23 19:35 Sodium 139 mmol/L (136-145) 07/04/23 19:35 Potassium 4.5 mmol/L (3.5-5.1) 07/04/23 19:35 Chloride 101 mmol/L (98-107) 07/04/23 19:35 Carbon Dioxide 26 mmol/L (21-32) 07/04/23 19:35 Anion Gap 12 (3-11) H 07/04/23 19:35 BUN 14 mg/dl (6-23) 07/04/23 19:35 Creatinine 0.82 mg/dl (0.6-1.4) 07/04/23 19:35 Est Cr Clr Drug Dosing 87.2 ml/min 07/04/23 19:35 Est GFR ( Amer) 100.3 ml/min 07/04/23 19:35 Est GFR (Non-Af Amer) 86.5 ml/min 07/04/23 19:35 BUN/Creatinine Ratio 17.1 (10-20) 07/04/23 19:35 Glucose 210 mg/dl (70-99(Fasting)) H 07/04/23 19:35 POC Glucose 137 mg/dl (70-99) H 07/05/23 02:36 Calcium 9.8 mg/dl (8.6-10.3) 07/04/23 19:35 Magnesium 1.7 mg/dl (1.7-2.4) 07/04/23 19:35 Total Bilirubin 0.8 mg/dl (0.2-1.0) 07/04/23 19:35 AST 19 U/L (13-39) 07/04/23 19:35 ALT 22 U/L (7-52) 07/04/23 19:35 Alkaline Phosphatase 90 U/L (34-104) 07/04/23 19:35 Troponin I High Sens 43.7 pg/ml (0-20) H 07/04/23 21:39 Total Protein 7.9 gm/dl (6.0-8.3) 07/04/23 19:35 Albumin 4.3 gm/dl (3.4-5.0) 07/04/23 19:35 Globulin 3.6 gm/dl (2.5-4.0) 07/04/23 19:35 Albumin/Globulin Ratio 1.2 (0.9-2) 07/04/23 19:[address] 07/04/23 19:19 Exam(s): CT HEAD Without Contrast EXAM: CT Head Without Intravenous Contrast CLINICAL HISTORY: Reason for exam: headache. TECHNIQUE: Axial computed tomography images of the head/brain without intravenous contrast. CTDI is 35.37 mGy and DLP is 624.41 mGy-cm. Automated exposure control was utilized for the study. A dose lowering technique was utilized adhering to the principles of ALARA. COMPARISON: No relevant prior studies available. FINDINGS: Brain: Cortical cerebral volume loss. Patchy white matter hypodensities in keeping with chronic small vessel ischemic disease. Montoya-white matter differentiation maintained. No acute intracranial hemorrhage. No mass-effect or midline shift. Ventricles: Unremarkable. No hydrocephalus. Bones/joints: Unremarkable. No acute fracture. Soft tissues: Unremarkable. Vasculature: Intracranial atherosclerosis. 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 Sinuses: Unremarkable as visualized. No acute sinusitis. Mastoid air cells: Unremarkable as visualized. No mastoid effusion. Orbits: Bilateral lens replacements. IMPRESSION: 1. No acute intracranial findings. 2. 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 Electronically signed by: Flory Moon M.D. 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
[2023-07-05] MEDS ORDERED: ACETAMINOPHEN 325 MG TAB PO PRN (02:31)
[2023-07-05] MEDS ORDERED: GLUCOSE 10 TAB/TUBE PO PRN (02:31)
[2023-07-05] MEDS ORDERED: GLUCAGON FOR INJ 1 MG VIAL SQ PRN (02:31)
[2023-07-05] MEDS ORDERED: DEXTROSE 50% 50 ML SYRINGE IV PRN (02:31)
[2023-07-05] MEDS ORDERED: ONDANSETRON INJ 2 MG/ML 2 ML VIAL IV PRN (02:31)
[2023-07-05] MEDS ORDERED: GLUCOSE 40% GEL 15 GM TUBE PO PRN (02:31)
[2023-07-05] MEDS ORDERED: CARBOHYDRATES FOR HYPOGLYCEMIA PO PRN (02:31)
[2023-07-05] MEDS: PANTOprazole 40 MG TAB PO SCH (08:13)
[2023-07-05] MEDS: metFORMIN HCL 500 MG TAB PO SCH (08:13)
[2023-07-05] MEDS: EMPAGLIFLOZIN 10 MG TAB PO SCH (08:13)
[2023-07-05] MEDS: LOSARTAN POTASSIUM 25 MG TAB PO SCH (08:13)
--- NOTE | 2023-07-05 12:09 | Electrocardiogram Report ---
Test Reason : Blood Pressure : / mmHG Vent. Rate : 097 BPM Atrial Rate : 097 BPM P-R Int : 182 ms QRS Dur : 128 ms QT Int : 410 ms P-R-T Axes : 055 124 033 degrees QTc Int : 520 ms Normal sinus rhythm Right bundle branch block Possible Lateral infarct , age undetermined Abnormal ECG When compared with ECG of 28-OCT-2021 22:01, No significant change was found Confirmed by Lee Art ([id number]) on 07/05/2023 12:09:00 PM Referred By: REFERRED SELF Confirmed By:Lee Art
--- NOTE | 2023-07-05 13:09 | XCELERA ---
[id number]
--- NOTE | 2023-07-05 13:34 | Discharge Summary ---
Date of Service July 05, 2023 Admission HPI Per Admitting Provider Zane Nuñez is a 77yo male with history of DM, HTN, HLP presenting with complaint of migraine. Headache ongoing since 07/02/23 - he typically can resolve his migraines by sleeping but this MCADAMS persisted. Pain is frontal, 9/10 in severity. He had nausea and vomiting as well. Headache has since resolved after treatment in the ER with Benadryl, Magnesium and Phenergan. Patient had a troponin ordered which was found to be elevated. He denies chest pain, palpitations, SOB, decreased exercises tolerance or other cardiac complaints. No prior history of CAD or arrhythmia. He had a stress test appx 5 years ago which was negative. Patient reports he is active and exercises without difficulty. No chest pain or shortness of breath with exertion. Admission Exam Per Admitting Provider General: patient resting comfortably, NAD, non-toxic in appearance, AA&O x 4 Skin: warm, dry, intact, no rashes or lesions HEENT: NC/AT, PERRL, EOMI, anicteric sclera, conjunctiva without injection, external ear normal to inspection and nontender, nares patent, moist mucus membranes, dentition intact, no oropharyngeal lesions, neck supple, trachea midline, no LAD, no thyromegaly, no JVD Heart: +S1/S2, regular, no m/r/g Lungs: equal air entry bilaterally, no rales/rhonchi/wheezes Abd: +BS, soft, NT/ND, no masses/organomegaly/ascites Ext: warm, 2+ pulses in UE/LE bilaterally, no clubbing/cyanosis or edema Neuro: nonfocal, patient AA&O x 4, speech intact, no facial droop, moving all extremities on command with equal strength 5/5 Principal Diagnosis Migraine Discharge Exam General: AAOx3, afebrile, NAD CV: RRR, no r/m/g Pulm: CTA bilaterally, normal respiratory effort, no respiratory distress GI: soft, non-distended, non-tender Extremities: no swelling in b/l LE, no calf tenderness Discharge Data Allergies Allergy/AdvReac Type Severity Reaction Status Date / Time amoxicillin Allergy Intermediate Rash Verified 07/03/23 09:01 aspartame AdvReac Intermediate HEADACHES Verified 07/03/23 09:01 lisinopril AdvReac Intermediate NAUSEA Verified 07/03/23 09:01 Consultations 07/04/23 23:07 ED Decision to Admit Stat Ordered Studies 07/04/23 19:19 CT head/brain wo con Stat Hospital Course (1) Elevated troponin: (2) Headache, migraine: (3) Mild aortic stenosis: Plan 77-year-old male who was admitted to our service due to elevated troponins. Prior to this finding, patient had arrived to the emergency department due to 2 to 3 days of migraine headaches, last of which he had experience around 10 years ago. Associated to his migraine, patient had been nauseous and had some episodes of vomiting. Troponins that were evaluated in the emergency room did show a level of 52.1 which decreased to 43.7 after a short time. Patient states that he did not have any chest pain, shortness of breath, near-syncope, or syncopal episodes prior to his arrival to emergency department and has not had the symptoms since. Echocardiogram was performed to make sure that there was no abnormalities to suggest heart disease as a cause for these elevated troponins, however ultimately findings were unremarkable (normal left ventricular systolic function, ejection fraction of 60 to 65%, no regional wall motion abnormalities, mild concentric left ventricular hypertrophy, mild mitral regurgitation). Therefore, we believe his increase in troponins is related to the nausea he was experiencing associated to his migraines and not due to cardiac ischemia. For this reason, patient was found stable and fit to be discharged today with outpatient follow-up with his primary care provider, with whom he was encouraged to discuss his migraines for adequate follow-up and discussion of possible abortive therapies. Also discussed nyof-ikk-cezndnx medications he could try for control of migraine symptoms such as Excedrin. All questions were answered. Of note, his echocardiogram did show mild aortic stenosis that is new in comparison to prior study done in 07/24/2022. Although we do not believe this is related to patient's current episode of elevated troponins, we do believe that it would be beneficial for patient to be monitored for this and possibly consider repeat TTE in 6 months to see if there are any changes. Total Time Total Time Spent Total Time Spent (In Minutes): <30 Discharge Plan Discharge Items Patient Disposition: Home - Self-Care Reason For Visit: MIGRAINE, ELEVATED TROPONIN Discharge Diagnosis: migraine Activity: Per Instructions section Non-emergency contact: Primary Care Provider Call non-emergency contact if: your symptoms worsen Follow-up/Referrals: Rupesh Sparrow, [Primary Care Provider] - 07/14/23 3:00 pm (with Popeye Bal PA-C. ) Diet: Carb Consistent or DM2 and Heart Healthy Addtl Attending Provider Instructions: You were admitted to the hospital due to slightly elevated troponins (heart proteins). As we discussed, this increase in heart proteins is not likely related to heart disease or a heart attack, but is more likely related to the nausea that you have been experiencing associated to your migraine. The ultrasound of your heart (echocardiogram) showed no significant abnormalities. Therefore, we find you fit and stable to be discharged today. Should you get future episodes of migraines as you experienced this last time, there are adja-obp-qmycsbh medications you can try for symptom control such as Excedrin. However, we do encourage you to discuss this with your primary care provider so that they may discuss with you other possible therapies if zthk-izj-brrlsyb medications are not helpful and they can keep track of how many episodes of migraines you get, and what timeframe to assess need for long-term treatment. A discharge summary will be sent to your primary care physician to ensure continuity of care. Please bring this discharge summary with you to your next office appointment so that your provider can review it at that time. Follow-up appointments: Make a follow-up appointment with your PCP within the next week. It is very important that you follow up with them shortly after discharge from the hospital. Keep all your follow-up appointments as already scheduled. If you cannot make an appointment, notify your provider. Medications: Your medication list has been reviewed and reconciled upon discharge to ensure accuracy and continuity of care. An updated list of all your medications is included with your hospital discharge paperwork. Please review this list closely, and make note of any changes. If you have any issues filling these prescriptions, please call [phone] and ask to leave a message for Dr. Loredo. Take your medications as instructed; do not skip a dose of your medicines. Make sure all of your doctors know every medicine you are taking (including cprj-zth-bwcghky medicines, vitamins, and supplements). Call your primary care provider before taking any new medicines (including over- the-counter medicines, vitamins, and supplements), because some of these may interact with your current medications, or may make your symptoms worse. Tell your primary care provider if you cannot afford your medications. CONTACT YOUR PRIMARY CARE PROVIDER if you experience any of the following: Worsening of symptoms Fever, chills, or fatigue Difficulty following your treatment plan, or difficulty taking medications CALL 911 OR GO TO THE EMERGENCY DEPARTMENT if you experience any of the following: Sudden, severe abdominal pain or nausea/vomiting Severe chest pain, or chest pain that radiates (moves) to your jaw or arm Sudden, severe shortness of breath or difficulty breathing Thank you for allowing us to participate in your care. Pending Studies at Discharge: No Stand-Alone Forms: My [facility], Smoking Cessation Medications and DC Order Prescriptions: Continued (DME) blood sugar diagnostic Strip See Dose Instructions .ROUTE .MEDSUPPLY Qty: 50 11RF Rx Instructions: Use to test blood sugar once daily glipizide 5 mg tablet extended release 24hr 10 mg PO BID Qty: 180 3RF Rx Instructions: as directed with meals losartan 25 mg tablet 25 mg PO QAM Qty: 90 3RF omeprazole 40 mg capsule,delayed release(DR/EC) 40 mg PO QAM Qty: 90 3RF metformin 500 mg tablet 1,000 mg PO BID Qty: 360 3RF atorvastatin 80 mg tablet 80 mg PO HS Qty: 90 3RF Jardiance 10 mg tablet 10 mg PO QAM Qty: 90 3RF (DME) Dexcom G7 Sensor Device See Rx Instructions .Route Qty: 1 3RF Rx Instructions: Continuous Glucose Monitor cholecalciferol (vitamin D3) 400 unit capsule 400 units PO QPM cinnamon bark [Cinnamon] 500 mg capsule 1,000 mg PO QPM Centrum Ultra Men's 8 mg iron- 200 mcg-600 mcg tablet 1 tab PO QAM naproxen sodium 220 mg tablet 220 mg PO BID PRN (Reason: pain) fexofenadine 180 mg Tablet 180 mg PO QPM aspirin 81 mg Tablet,Delayed Release (Dr/Ec) 81 mg PO QPM tacrolimus 0.1 % ointment 1 applic topical BID PRN (Reason: Skin Irritation) Rx Instructions: Apply to areas of the hand twice daily as needed. Discharge Orders: Discharge Order (Routine); Ordered 07/05/23 Ordered By: Gabrielle Loredo Admission Data Admit Date/Time: 07/05/23 00:53 Attending Provider: Guru Claire Admit Provider: Shannan Parry Primary Care Provider: Rupesh Sparrow Other Providers: Shannan Parry Other Interventions: Discharge Summary Assessment (RN) Last Done: 07/05/23 14:15 Supervising Physician Co-Signing Physician Notes I personally examined the patient and verified all patel points of history and exam, discussed case, and agree with decision making with Dr Loredo feeling good and feels up to going home. discussed troponin, echo vitals noted nad heent nc at mmm breathing unlabored no accessory muscles good effort skin no rashes no pallor or icterus neuro no focal deficits elevated troponin - probably from very mild demand from vomiting in the setting of LVH and mild aortic stenosis. mild aortic stenosis - new on current echo. repeat echo ~6 months to track for any progression safe/stable for home, otherwise as above Resident Activity Tracking Resident Involvement: Resident Care Provided Care Provided: Adult Hospital Medicine
--- NOTE | 2023-07-05 16:21 | Billing Data ---
Date of Service July 05, 2023 Coding Level of Care Code 95904 IN/OBS DISCH 30 MIN/LESS
[2023-07-05] MEDS ORDERED: ATORVASTATIN 40 MG TAB PO SCH (21:00)
[2023-07-05] MEDS ORDERED: FEXOFENADINE HCL 180 MG TAB PO SCH (21:00)
[2023-07-05] MEDS ORDERED: ASPIRIN 81 MG ECTAB PO SCH (21:00)
== END 2023-07-05 15:00 | disposition home or self-care (01) ==
LOC: ED 19:08 → 2S 19:08 → SUATTDRO 07-05 00:53 → 2S 07-05 02:27